=== PATIENT | male | born 1965 | race American Indian/Alaskan Native ===

== ENCOUNTER 2017-02-05 06:19 | Day surgery (SDC) | payer MEDICAID ==
[2017-02-05] MEDS ORDERED: LR 1,000 ML IV ONE (07:07)
--- NOTE | 2017-02-05 07:08 | PDANEPAE ---
ANE History of Present Illness History of hep C for eso evaluation ANE Past Medical History - Pulmonary History Hx Sleep Apnea: No ANE Review of Systems Review of Systems: - Exercise capacity METS (RN): 4 METS ANE Patient History - Allergies Allergies/Adverse Reactions: No Known Allergies Allergy (Unverified 02/05/17 07:20) - Smoking Hx Smoking Status: Heavy smoker ANE Labs/Vital Signs - Vital Signs Height: 187.96 cm Weight: 72.575 kg ANE Physical Exam - Airway Neck exam: FROM Mallampati Score: Class 2 Mouth exam: poor dentition - Pulmonary Pulmonary: no respiratory distress - Cardiovascular Cardiovascular: regular rate and rhythym - ASA Status ASA Status: II ANE Anesthesia Plan Anesthesia Plan: MAC (With IV GA if needed)
[2017-02-05] MEDS ORDERED: PROPOFOL/EMULSION 500 MG/50 ML BOTTLE IV ONE (07:31)
[2017-02-05] MEDS ORDERED: LIDOCAINE 2% 5 ML SDV ONE (07:31)
[2017-02-05] MEDS ORDERED: NALOXONE HCL 0.4 MG/ML INJ IVP PRN (07:33)
[2017-02-05] MEDS ORDERED: ONDANSETRON 4 MG/2 ML VIAL IVP PRN (07:33)
[2017-02-05] MEDS ORDERED: fentaNYL 100 MCG/2 ML INJ IVP PRN (07:33)
--- NOTE | 2017-02-05 07:47 | PDGENHP ---
History & Physical Chief Complaint: esophageal varices/heartburn History of Present Illness: 52 year old male presents for evaluation of esophageal varices evaluation of heartburn Pertinent Past, Social, Family History: PMHx: cirrhosis. SoHx: alcohol Relevant Physical Exam: HEENT: Anicteric. CV: RRR +s1s2. lungs :CTAB Cardiorespiratory Assessment: ASA 3
[2017-02-05] MEDS ORDERED: INDOMETHACIN 50 MG SUPP PR PRN (07:48)
[2017-02-05] MEDS ORDERED: NS 500 ML IV SCH (08:00)
--- NOTE | 2017-02-05 08:08 | POSTANESTH ---
Post Anesthetic Evaluation Cardiovascular Status: Normal, Stable (bp SIMILIAR TO PRE-OP) Respiratory Status: Normal, Stable Level of Consciousness/Mental Status: Can Participate in Eval, Alert and Oriented Pain Control: Adequate, Prn Tx Ordered Nausea/Vomiting Control: Adequate, Prn Tx Ordered Complications Possibly Related to Anesthesia: None Noted
--- NOTE | 2017-02-05 08:18 | POSTOPPROG ---
Post Op Note Date of Operation: 02/05/17 Surgeon: Diaz Coon Anesthesia: IV Sedation Pre-op Diagnosis: heartburn. Post-op Diagnosis: heartburn. gastritis Indication: heartburn Procedure: EGD with bx Findings: gastritis Inf/Abcess present in the surg proc area at time of surgery?: No EBL: Minimal Specimen(s): gastritis GE jxn.
[2017-02-05 08:24] VITALS: TEMP 97.3
[2017-02-05 09:07] VITALS: O2SAT 95
--- NOTE | 2017-02-05 09:42 | GPN ---
[f rep st] PROCEDURE NOTE DATE OF PROCEDURE: 02/05/2017 PROCEDURE: Esophagogastroduodenoscopy with biopsy. INDICATIONS: Mr. Olivas is a 52-year-old male with a history of liver cirrhosis who presents for evaluation of esophageal varices as well as complaints of heartburn. CONSENT: Risks, benefits, and alternatives of the procedure were discussed in great detail with the patient. Risks of infection, bleeding, perforation, and sedation were discussed. All questions answered and informed consent was obtained. MEDICATIONS: Propofol. Please see Anesthesia record for details. ESTIMATED BLOOD LOSS: Insignificant ESOPHAGOGASTRODUODENOSCOPY EXAMINATION: The Olympus upper endoscope was introduced into the mouth and advanced to the esophagus. The proximal and mid esopha herminia were normal in appearance. No evidence of esophageal varices was noted. At the distal esophagus, mild esophagitis was noted. Biopsies were taken. The stomach was entered and closely examined including retroflexed views of the angularis, cardia, and fundus. A hiatal hernia was noted. The mucosa of the antrum body was erythematous in a patchy distribution. Biopsies taken. The duodenal bulb and second portion of the duodenum were normal in appearance. IMPRESSION: 1. Esophagitis, status post biopsy. 2. Gastritis, status post biopsy. 3. No esophageal varices were noted. 4. PPI therapy. 5. Continue previous medications. 5. Follow up with Dr. Espinoza in our office for his liver care. /[id number]/MODL MTDD
[2017-02-05 11:11] VITALS: BP 110/60; PULSE 70; RESP 16
== END 2017-02-05 09:35 | disposition home or self-care (01) ==
LOC: FSGY 06:19
PROVIDERS: ATTEND Internal Medicine Gastroenterology
PROC: 0DB38ZX Excision of Lower Esophagus, Via Natural or Artificial Opening Endoscopic, Diagnostic (ICD-10-PCS; principal; 2017-02-05 07:30)
PROC: 0DB68ZX Excision of Stomach, Via Natural or Artificial Opening Endoscopic, Diagnostic (ICD-10-PCS; principal; 2017-02-05 07:30)
DX: K20.9 Esophagitis, unspecified (principal); K29.70 Gastritis, unspecified, without bleeding; K44.9 Diaphragmatic hernia without obstruction or gangrene; K74.60 Unspecified cirrhosis of liver; K21.9 Gastro-esophageal reflux disease without esophagitis
CPT/HCPCS: J2704

== ENCOUNTER 2017-05-06 05:27 | Inpatient (IN) | payer MEDICAID ==
[2017-05-06] MEDS ORDERED: ceFAZolin 2 GM/SWFI 2 GM/20 ML SYR IVP ONE (05:45)
[2017-05-06] MEDS ORDERED: LIDOCAINE 1% 2 ML INJ ID PRN (05:46)
[2017-05-06] MEDS ORDERED: LR 1,000 ML IV ONE (05:46)
[2017-05-06] MEDS ORDERED: LIDOCAINE 0.5% 50 ML SDV ONE (05:53)
[2017-05-06] MEDS ORDERED: LIDOCAINE 1% 2 ML INJ ONE (05:54)
--- NOTE | 2017-05-06 06:52 | PDANEPAE ---
ANE History of Present Illness bilat leg wound ANE Past Medical History - Cardiovascular History Hx Hypertension: No Hx Arrhythmias: No Hx Chest Pain: No Hx Coronary Artery / Peripheral Vascular Disease: No Hx CHF / Valvular Disease: No Hx Palpitations: No - Pulmonary History Hx COPD: No Hx Asthma/Reactive Airway Disease: No Hx Recent Upper Respiratory Infection: No Hx Oxygen in Use at Home: No Hx Sleep Apnea: No Sleep Apnea Screening Result - Last Documented: Negative Pulmonary History Comment: smokes 5 cigs/day but did not smoke x 10 mos prior to October. - Neurologic History Hx Cerebrovascular Accident: No Hx Seizures: No Hx Dementia: No - Endocrine History Hx Diabetes: No - Renal History Hx Renal Disorders: No - Liver History Hx Hepatic Disorders: Yes Hepatic History Comment: Cirrhosis, Hep C - Neurological & Psychiatric Hx Hx Neurological and Psychiatric Disorders: No - Cancer History Hx Cancer: No - Congenital Disorder History Hx Congenital Disorders: No - GI History Hx Gastrointestinal Disorders: No - Other Health History Other Health History: cellulitis bilat lower legs-ulcerated areas and edema bilat knees,thighs - Chronic Pain History Chronic Pain: Yes (bilat lower legs) - Surgical History Prior Surgeries: L hip Bone marrow bx at [facility] 05-04-17. L thumb sx ANE Review of Systems Review of systems is: negative Review of Systems: - Exercise capacity Exercise capacity: >=4 METS METS (RN): 4 METS ANE Patient History - Allergies Allergies/Adverse Reactions: No Known Allergies Allergy (Verified 05/04/17 15:31) - Home Medications Home Medications: Flonase Nasal [place] 05/04/17 [Last Taken Unknown] Furosemide 05/04/17 [Last Taken Unknown] Omeprazole 05/04/17 [Last Taken Unknown] Spironolactone 05/04/17 [Last Taken Unknown] Sulfamethox/Tmp 05/04/17 [Last Taken Unknown] oxyCODONE CR 05/04/17 [Last Taken Unknown] - NPO status NPO Status: no food or drink >8 hours - Anes Hx Anes Hx: no prior problems - Smoking Hx Smoking Status: Heavy smoker - Alcohol Use Alcohol Use: Sober (x 17 mos) - Family Anes Hx Family Hx Anesthesia Complications: none ANE Labs/Vital Signs - Vital Signs Blood Pressure: 105/59 Heart Rate: 84 Respiratory Rate: 16 O2 Sat (%): 96 Height: 187.96 cm Weight: 77.111 kg ANE Physical Exam - Airway Mallampati Score: Class 2 Mouth exam: poor dentition - Pulmonary Pulmonary: no respiratory distress - Cardiovascular Cardiovascular: regular rate and rhythym - ASA Status ASA Status: III ANE Anesthesia Plan Anesthesia Plan: general endotracheal anesthesia, GA w LMA
--- NOTE | 2017-05-06 07:06 | PDHPUP ---
History & Physical Update H&P update statement: This history and physical update is based on an assessment of the patient which was completed after admission or registration (within 24 hours), but prior to the surgery/procedure. H&P update: H&P reviewed & patient examined, no change in patient's condition since H&P completed
[2017-05-06] MEDS ORDERED: LIDOCAINE 2% 5 ML SDV ONE (07:12)
[2017-05-06] MEDS ORDERED: fentaNYL 100 MCG/2 ML INJ ONE ×4 (07:13→08:50)
[2017-05-06] MEDS ORDERED: PROPOFOL/EMULSION 500 MG/50 ML BOTTLE IV ONE (07:13)
[2017-05-06] MEDS ORDERED: ALBUTEROL 3 ML DEYVIAL IH PRN (08:23)
[2017-05-06] MEDS ORDERED: NALOXONE HCL 0.4 MG/ML INJ IVP PRN (08:23)
[2017-05-06] MEDS ORDERED: ONDANSETRON 4 MG/2 ML VIAL IVP PRN (08:23)
[2017-05-06] MEDS ORDERED: HYDROmorphONE/DILAUDID 1 MG/ML INJ IVP PRN (08:23)
--- NOTE | 2017-05-06 08:24 | POSTOPPROG ---
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
[2017-05-06] MEDS ORDERED: oxyCODONE IR 5 MG TAB PO ONE (08:25)
--- NOTE | 2017-05-06 08:26 | POSTANESTH ---
Post Anesthetic Evaluation Cardiovascular Status: Normal, Stable Respiratory Status: Normal, Stable Level of Consciousness/Mental Status: Can Participate in Eval Pain Control: Adequate, Prn Tx Ordered Nausea/Vomiting Control: Adequate, Prn Tx Ordered Complications Possibly Related to Anesthesia: None Noted
[2017-05-06] MEDS: fentaNYL 100 MCG/2 ML INJ IVP PRN ×4 (08:31→09:00)
[2017-05-06] MEDS ORDERED: oxyCODONE IR 5 MG TAB ONE (08:45)
[2017-05-06] MEDS: IBUPROFEN 600 MG TAB PO PRN ×2 (10:28→17:39)
[2017-05-06] MEDS: oxyCODONE IR 5 MG TAB PO PRN ×2 (11:57→17:40)
[2017-05-06] MEDS ORDERED: IBUPROFEN 200 MG TAB PO PRN (14:27)
[2017-05-06] MEDS ORDERED: oxyCODONE IR 5 MG TAB PO PRN (14:27)
--- NOTE | 2017-05-06 14:33 | PDGENHP ---
History and Physical - Chief Complaint Acute leg edema - History of Present Illness Primary care provider: [facility] Primary overlock elastic attacher: Dr. Joni Espinoza Primary oncologist: Dr. Esau Salomon Primary general surgeon and product support specialist: Dr. Li Thacker Primary service: Dr. Li Thacker Reason for consultation: Medical comanagement HPI: 52-year-old male presenting with acute lower extremity edema characterized as weighty, swollen legs with associated pain located in the bilateral lower extremities, skin flaking, nonhealing ulcerations, with onset of these wounds approximately October of 2016. The patient reports that he normally uses oxycodone immediate release to alleviate his pain, and the pain is somewhat worse with ambulation. He reports that the edema has recently been increasing, and he has not taken his home diuretics on the morning of this presentation secondary to surgical procedure. He was recently initiated on ciprofloxacin and Bactrim, and he has been adherent to these medications. History Information - Allergies/Home Medication List Allergies/Adverse Reactions: No Known Allergies Allergy (Verified 05/04/17 15:31) Home Medications: Fluticasone Nasal [Flonase Nasal [place] (RX)] 2 sprays NASAL BID 05/04/17 [Last Taken 05/05/17 21:00] Furosemide [Lasix 20 MG (*)] 20 mg PO DAILY 05/04/17 [Last Taken 05/05/17] Omeprazole 40 mg PO DAILY 05/04/17 [Last Taken 05/05/17] Spironolactone [Aldactone 50 MG (RX)] 50 mg PO DAILY 05/04/17 [Last Taken ] Sulfamethox/Tmp 800/160 mg [Bactrim Ds] 1 tab PO BID 05/04/17 [Last Taken 04:00] oxyCODONE IR [Oxycodone Ir (*)] 5 - 10 mg PO Q6H PRN 05/04/17 [Last Taken 04:00] Ibuprofen [Motrin (*)] 400 mg PO Q6H PRN 05/06/17 [Last Taken 05/04/17] I have personally reviewed and updated: family history, medical history, social history, surgical history - Past Medical History Additional medical history: 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 Joni Espinoza, who has recommended follow-up for possible malignancy with Dr. Salomon as well as [facility] [place], although the patient recently received notification that he was not a transplant candidate. Liver malignancy verses multiple myeloma, currently being evaluated by Dr. Darcie Salomon. Chronic wounds with lymphedema, recently diagnosed as secondary Pseudomonas - Surgical History Additional surgical history: Bone marrow biopsy 2 days ago. Orthopedic surgeries. Patient has never had operative wound care of his lower extremity - Family History Additional family history: No family history of DVT - Social History Smoking Status: Heavy smoker Alcohol Use: Sober (x 17 mos) Drug Use: None Additional social history: Independent in his ADLs Review of Systems Review of Systems: ROS: 10pt was reviewed & negative except for what was stated in HPI & below Constitutional: Reports: other (Weight gain) Skin: Reports: other (Flaking and ulcerations bilateral lower extremity, soft tissue swelling and tenderness) Physical Exam Physical Exam: Temp Pulse Resp BP Pulse Ox 36.9 C 81 18 93/54 L 96 05/06/17 11:51 05/06/17 11:51 05/06/17 11:51 05/06/17 11:51 05/06/17 11:51 O2 (L/minute) 3 Constitutional: no apparent distress, not in pain, chronically ill appearing, uncomfortable Eyes: PERRL, EOMI, icteric sclera Ears, Nose, Mouth, Throat: moist mucous membranes, no oral mucosal ulcers, poor dentition Cardiovascular: regular rate and rhythym, no murmur, rub, or gallop, edema (2+ bilateral lower extremity edema), No irregularly irregular Respiratory: no respiratory distress, no rales or rhonchi, clear to auscultation Gastrointestinal: normoactive bowel sounds, other (Firm abdomen), No tenderness , No guarding, No distension Skin: other (Crusting ulceration between the 1st 2nd and 3rd digits on the left lower extremity, extending somewhat dorsally on to the surface of the left foot , wound VAC currently in place, dry flaking skin proximally, left lower extremity also with dry scaling skin) Musculoskeletal: other (Full range of motion right ankle without pain, limited range of motion left ankle secondary to pain) Neurologic: AAOx3, sensation intact bilaterally, No weakness, No asterixes Psychiatric: interacting appropriately, not anxious, not encephalopathic, thought process linear Lab Data & Imaging Review Patient ABO/Rh A POSITIVE 05/06/17 06:30 Antibody Screen NEGATIVE 05/06/17 06:30 Assessment & Plan Assessment: 52-year-old male presenting for surgical wound debridement in the setting of cirrhosis, pseudomonal skin infection Plan: 1. Cirrhosis. Patient reports this is secondary to hepatitis C virus, although the patient does have approximately 5 years of heavy alcohol use in his recent past, last drink 17 months ago, may have potentiated or accelerated his liver damage -check labs at this time to evaluate synthetic function -patient is clearly hypervolemic and review of outside records demonstrates he has gained 4.5 kg since 3 months prior, based on weights obtained from 02/05/2017 -given that he held his morning Lasix and Aldactone, and has also received IV fluids with surgery, would recommend initially treating him with Lasix 40 mg IV twice daily, gauging affect with strict I&Os, daily weights -will possibly reinitiate his home Aldactone tomorrow, depending on lab values, urine output -patient has not been initiated on lactulose, but he is demonstrating subtle facial affect of the patient who develops hepatic encephalopathy and I would recommend beginning to educate him regarding lactulose at this time, giving him an initial trial, will schedule three times daily gauge effect 2. Pseudomonal skin infection with lymphedema and chronic lower extremity wounds. Reviewed outside records including 04/28/[address] Li Thacker, characterizing patient's previous wound care, plan for surgical debridement -discussed with Dr. Li Thacker, she is taking the patient to the OR this morning, she is placed wound vacs, she reports to me that she will remain the primary service and will continue to consult this patient's daily care in conjunction with Infectious Disease to help guide antibiotic management 3. Liver cancer versus multiple myeloma. Outside records demonstrate that patient does have an elevated kappa to lambda spike, although there are reports of the patient having liver malignancy -will order outside [facility] to determine the exact working diagnosis aware patient is in workup -patient reports he has an upcoming PET scan 4. Anemia. Baseline hemoglobin around 10, secondary to chronic inflammatory disease, will recheck hemoglobin now Diet. Regular Prophylaxis. Per surgical primary team Code. Full per patient, his sister surely is MD ALTMAN Disposition. Anticipated discharge is 05/07, pending stabilization of conditions outlined above. If patient requires greater than 48 hr inpatient hospitalization for reasonable medical necessity and ongoing surgical care, he will be upgraded to inpatient admission status tomorrow.
[2017-05-06] MEDS: FUROSEMIDE 40 MG/4 ML VIAL IVP SCH (14:44)
[2017-05-06] MEDS: LACTULOSE 20 GM/30 ML UDCUP PO SCH ×2 (14:44→22:06)
[2017-05-06 15:38] LABS: % IMMATURE GRANULYOCYTES 0.7 % (0.0-1.1); ABSOLUTE IMMATURE GRANULOCYTES 0.07 10^3/uL (0.00-0.10); ADD DIFF? NO; ADD MORPH? NO; ADD SCAN? NO; ATYPICAL LYMPHOCYTE FLAG 0 (0-99); FRAGMENT RBC FLAG 0 (0-99); HEMATOCRIT 28.1 % (40.0-51.0); HEMOGLOBIN 9.7 g/dL (13.7-17.5); LEFT SHIFT FLG 0 (0-99); LIPEMIA HEMOLYSIS FLAG 90 (0-99); MEAN CELL HEMOGLOBIN 30.8 pg (27.9-34.1); MEAN CELL HEMOGLOBIN CONCENTR. 34.5 g/dL (32.4-36.7); MEAN CELL VOLUME 89.2 fL (81.5-99.8); MEAN PLATELET VOLUME 8.5 fL (8.7-11.7); PLATELET CLUMPS FLAG 0 (0-99); PLATELET COUNT 227 10^3/uL (150-400); RED BLOOD CELL COUNT 3.15 10^6/uL (4.40-6.38); RED CELL DISTRIBUTION WIDTH 15.3 % (11.5-15.2)
[2017-05-06 16:15] LABS: ALANINE AMINOTRANSFERASE 29 IU/L (21-72); ALBUMIN 2.7 g/dL (3.5-5.0); ALKALINE PHOSPHATASE 84 IU/L (38-126); ANION GAP 9 mEq/L (8-16); ASPARTATE AMINOTRANSFERASE 43 IU/L (17-59); BILIRUBIN,TOTAL 1.3 mg/dL (0.1-1.4); CALCIUM 8.8 mg/dL (8.5-10.4); CARBON DIOXIDE 17 mEq/l (22-31); CHLORIDE 109 mEq/L (97-110); CREATININE 1.5 mg/dL (0.7-1.3); GLOMERULAR FILTRATION RATE 49; GLUCOSE 101 mg/dL (70-100); POTASSIUM 4.4 mEq/L (3.5-5.2); SODIUM 135 mEq/L (134-144); TOTAL PROTEIN 7.7 g/dL (6.3-8.2)
--- NOTE | 2017-05-06 21:16 | GCON ---
[f rep st] CONSULTATION INFECTIOUS DISEASE CONSULTATION. DATE OF CONSULTATION: 05/06/2017 REASON FOR CONSULTATION: Query lower extremity cellulitis. HISTORY OF PRESENT ILLNESS: This is a 52-year-old male whose current problems date back to February 2016 when he was noted to have increased lower extremity swelling and subsequently diagnosed with cirrhosis attributed to hepatitis C and alcohol. Through a series of events, patient developed lower extremity wounds related to various lower extremity injuries and [facility]. Multiple attempts were made to try to adequately debride his lower extremities and control of lower extremity edema, but unable to debride adequately in clinic and patient was taken to the OR today for wound VAC placement. Patient was also managed at [facility], who reportedly obtained a wound culture which showed reportedly Pseudomonas. Patient was on a course of Cipro and Bactrim. Cipro was discontinued 4 days ago and patient was on Bactrim leading up to surgery. On evaluation by the surgical services, there was concern for faint erythema of the lower extremities consistent with possible cellulitis. Patient notes increasing swelling in his legs and increasing pain associated with his legs that has been progressive over the last several weeks. He denies fever but has had chills for 1 month. In the OR today, patient was found to have significant necrotic material and wounds were debrided and wound VAC was placed. No cultures were obtained. 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 Has not received hepatitis C treatment. Genotype and viral load are not available at the time of this dictation. Also, there is concern for underlying liver cancer versus multiple myeloma and patient underwent a bone marrow biopsy 2 days ago. Lower extremity lymphedema with multiple wounds colonized with Pseudomonas. SURGICAL HISTORY: Bone marrow biopsy 2 days ago. Orthopedic surgeries and operative care of his wounds as per HPI. SOCIAL HISTORY: Patient is a longstanding heavy smoker. He has been abstinent from alcohol for 17 months. Remote history of drug use in his teen years. Denies blood transfusion. Previously worked as a remote inpatient coder and a cook. FAMILY HISTORY: Reviewed and noncontributory. ALLERGIES: NKDA. MEDICATIONS: Include perioperative cefazolin 2 g, Aldactone 50 mg daily. Protonix 40 mg daily, oxycodone as needed, lactulose 20 mg 3 times daily, Motrin , Lasix 40 mg twice daily, Flonase. REVIEW OF SYSTEMS: A complete 10-point review of systems was performed and is negative except as mentioned in the HPI. PHYSICAL EXAMINATION: VITAL SIGNS: Blood pressure 106/61, heart rate 78, respiratory rate 20, saturation 98% on room air, temperature 36.6. Afebrile throughout his hospital course. GENERAL: This is a very pleasant male sitting up in bed, in no acute distress. HEENT: Pale conjunctivae, query underlying mild jaundice. Oropharynx: Poor dentition. Moist mucous membranes. NECK: Supple. No lymphadenopathy. CARDIOVASCULAR: Regular rate, no murmurs. CHEST: Clear to auscultation bilaterally. ABDOMEN: Soft, nontender. No obvious ascites on my exam. : No Hsieh. EXTREMITIES: Patient has marked edema up to his hips, but most prominent in the distal leg with hyperpigmentation in a stocking distribution, left greater than right. Patient has wound vacs in place. On the right leg, there is a faint pinkness superimposed, the hyperpigmentation, with the pinkness traveling up his right leg with associated tenderness to palpation. On the left side, there is also a faint pinkness as well with associated warmth bilaterally, as above marked woody edema. NEUROLOGIC: He is alert, oriented x4. He is moving all 4 extremities equally. His speech is fluent. LABORATORY: White count 9.9, hematocrit 28, platelets of 227, 68% neutrophils. Creatinine is pending. INR is 1.48 previously. Blood cultures were collected and are pending. ASSESSMENT AND PLAN: Complex 52-year-old male with cirrhosis and likely malignancy hepatoma versus multiple myeloma, who is admitted for LE wound debridement. Certainly the most pressing underlying problem is control of lower extremity edema. There is a faint pinkness to his legs bilaterally. Difficult to assess if true infection, but patient has had some systemic symptoms, i.e chills. His white count is slightly elevated. Once concern is that infection could be significantly more subtle in patient with underlying cirrhosis. Will initiate cefazolin for coverage of MSSA and group A strep, if infected, most consistent with strep. But he may simply need elevation and better edema control. Reassess need for antibiotics tomorrow. Discontinue Bactrim. Thank you for this consultation. We will continue to follow on a daily basis. /[id number]/MODL MTDD
[2017-05-06] MEDS: FLUTICASONE NASAL 120 SPRAYS/16 GM MDI EACHNARE SCH (22:06)
[2017-05-07] MEDS: oxyCODONE IR 5 MG TAB PO PRN ×5 (00:17→23:57)
[2017-05-07] MEDS: PANTOPRAZOLE SODIUM 40 MG TAB PO SCH (07:29)
[2017-05-07] MEDS: FUROSEMIDE 40 MG/4 ML VIAL IVP SCH ×2 (07:29→16:13)
[2017-05-07] MEDS: LACTULOSE 20 GM/30 ML UDCUP PO SCH ×3 (07:29→21:22)
[2017-05-07] MEDS: FLUTICASONE NASAL 120 SPRAYS/16 GM MDI EACHNARE SCH ×2 (07:29→19:38)
[2017-05-07] MEDS ORDERED: SPIRONOLACTONE 50 MG TAB PO SCH (09:00)
[2017-05-07] MEDS ORDERED: NON-FORMULARY NEW DRUG (Omeprazole [Omeprazole] 40 MG) PO SCH (09:00)
--- NOTE | 2017-05-07 09:30 | SOAPPROG ---
SOAP Progress Note Assessment/Plan: Assessment: POD #1 s/p debridement BLE with wound vac placement IV antibiotics per ID Hospitalists managing comorbidities OK to change allevyn dressings PRN We will change wound vac dressings on Wednesday Seen c Dr. Thacker S: pain of bilateral lower extremities. significant drainage and leaking from dressings overnight. O: laying in bed comfortable NAD No increased WOB + peripheral edema B Wound vac to suction 05/18/17 08:48 Objective: Vital Signs Temp Pulse Resp BP Pulse Ox 36.7 C 80 16 93/57 L 97 05/07/17 08:03 05/07/17 08:03 05/07/17 08:03 05/07/17 08:03 05/07/17 08:03 Laboratory Results 05/06/17 15:13 05/06/17 15:13 05/06/17 05/07/17 05/08/17 05:59 05:59 05:59 Intake Total 1220 Output Total 370 Balance 850 ICD10 Worksheet Patient Problems: Problems Problem Status Onset Cirrhosis of liver Acute Lymphedema Acute
[2017-05-07 10:20] LABS: % IMMATURE GRANULYOCYTES 0.6 % (0.0-1.1); ABSOLUTE IMMATURE GRANULOCYTES 0.05 10^3/uL (0.00-0.10); ADD DIFF? NO; ADD MORPH? NO; ADD SCAN? NO; ATYPICAL LYMPHOCYTE FLAG 0 (0-99); FRAGMENT RBC FLAG 30 (0-99); HEMATOCRIT 29.5 % (40.0-51.0); HEMOGLOBIN 10.2 g/dL (13.7-17.5); LEFT SHIFT FLG 0 (0-99); LIPEMIA HEMOLYSIS FLAG 90 (0-99); MEAN CELL HEMOGLOBIN 30.4 pg (27.9-34.1); MEAN CELL HEMOGLOBIN CONCENTR. 34.6 g/dL (32.4-36.7); MEAN CELL VOLUME 88.1 fL (81.5-99.8); MEAN PLATELET VOLUME 8.5 fL (8.7-11.7); PLATELET CLUMPS FLAG 0 (0-99); PLATELET COUNT 283 10^3/uL (150-400); RED BLOOD CELL COUNT 3.35 10^6/uL (4.40-6.38); RED CELL DISTRIBUTION WIDTH 15.3 % (11.5-15.2)
[2017-05-07 10:27] LABS: ALANINE AMINOTRANSFERASE 31 IU/L (21-72); ALBUMIN 2.8 g/dL (3.5-5.0); ALKALINE PHOSPHATASE 80 IU/L (38-126); ANION GAP 10 mEq/L (8-16); ASPARTATE AMINOTRANSFERASE 44 IU/L (17-59); BILIRUBIN,TOTAL 1.2 mg/dL (0.1-1.4); CALCIUM 8.6 mg/dL (8.5-10.4); CARBON DIOXIDE 19 mEq/l (22-31); CHLORIDE 111 mEq/L (97-110); CREATININE 1.5 mg/dL (0.7-1.3); GLOMERULAR FILTRATION RATE 49; GLUCOSE 114 mg/dL (70-100); POTASSIUM 4.3 mEq/L (3.5-5.2); SODIUM 140 mEq/L (134-144)
--- NOTE | 2017-05-07 10:33 | PCMIDPN ---
Assessment/Plan: Severe LE edema: multifactorial with cirrhosis and lymphedema. Redness almost completely resolved today therefore suspect not c/w cellulitis - suspect due to skin inflammation from severe edema. Sl elevated WBC yesterday likely leukemoid reaction from surgery --dc cefazolin --continue to monitor blood cx --ID to follow peripherally Subjective: patient remains cheerful no specific c/o Objective: Vital Signs Temp Pulse Resp BP Pulse Ox 36.7 C 80 16 93/57 L 97 05/07/17 08:03 05/07/17 08:03 05/07/17 08:03 05/07/17 08:03 05/07/17 08:03 Laboratory Results 05/07/17 09:52 05/07/17 09:52 05/06/17 05/07/17 05/08/17 05:59 05:59 05:59 Intake Total 1220 Output Total 370 Balance 850 - Physical Exam General Appearance: alert EENT: poor dentition Respiratory: No accessory muscle use Neck: supple Extremities: pedal edema (woody), inflammation, other (hyperpigmentation stocking distribution R>L ; multiple wound vacs in place), No erythema Skin: warm/dry, pallor Neuro/Psych: alert, normal mood/affect, oriented x 3 ICD10 Worksheet Patient Problems: Problems Problem Status Onset Cirrhosis of liver Acute Lymphedema Acute - ICD10 Problem Qualifiers (1) Lymphedema (2) Cirrhosis of liver
--- NOTE | 2017-05-07 17:26 | ASMTCMCOM ---
CM Note CM Note Notes: Spoke with this am, pt needs a wound vac. Application form signed and submitted to [facility], Sarina at [facility] notified. CM spoke w/pt re dc home with wound vac and homecare. Pt does not have a home of his own, his 8 yrs ago from bone cancer. Presently he is staying with Melba a "lady friend" she Lives at [address] in [place]. He also has a brother in [place] but he doesn't like to be around him as he "self medicates". He does have another friend Gene who he can also stay with. CM and pt also discussed SNF but since he is has Medicaid, he would need to stay 30 days, pt prefers to go to Melba's house. CM waiting for ins auth for wound vac and will set up home care. DC Plan: Dc to [facility] [place] with wound vac and OCTAVIO RN Date Signed: 05/07/2017 05:26 PM Electronically Signed By:Nohemi Nolan RN
--- NOTE | 2017-05-07 17:35 | HOSPPROG ---
Hospitalist Progress Note Assessment/Plan: Assessment: 52-year-old male presenting for surgical wound debridement in the setting of cirrhosis, chronic LE edema Plan: 1. Cirrhosis. Patient reports this is secondary to hepatitis C virus, although the patient does have approximately 5 years of heavy alcohol use in his recent past, last drink 17 months ago, may have potentiated or accelerated his liver damage -likely significantly contributing to his LE edema, w/ a 4.5kg weight gain since 02/14 -cont lasix 40mg IV bid + restart home aldactone, gauge effect, monitor strict I /O/weights -remains substantially hypervolemic -Cr rising today (last Cr 1.2 04/16), now 1.5, monitor closely while diuresing 2. 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 D/w Dr. See, her impression is that he does not have acute cellulitis , and her recommendation is to stop IV Abx, monitor -POD#[address] Thacker, she remains primary service -he will require wound vac, CM making arrangements for outpt mgmt -daily wound care 3. Liver cancer versus multiple myeloma. Outside records demonstrate that patient does have an elevated kappa to lambda spike, although there are reports of the patient having liver malignancy -will order outside records from [facility] to determine the exact working diagnosis aware patient is in workup -patient reports he has an upcoming PET scan 4. Anemia. Baseline hemoglobin around 10, secondary to chronic inflammatory disease Diet. Regular Prophylaxis. Per surgical primary team Code. Full per patient, his sister surely is MD ALTMAN Disposition. Anticipated discharge uncertain, anticipated LOS>48hrs for reasonable medical necessity including cirrhosis w/ severe lower extremity edema requiring IV diuretics, high risk due to rising Cr and high risk of going into heptorenal syndrome. Counseled patient extensively about the renal/liver/edema issues above. Subjective: patient reports ongoing leg pain Objective: Vital Signs Temp Pulse Resp BP Pulse Ox 36.6 C 76 16 93/53 L 95 05/07/17 15:32 05/07/17 15:32 05/07/17 15:32 05/07/17 15:32 05/07/17 15:32 Laboratory Results 05/07/17 09:52 05/07/17 09:52 05/06/17 05/07/17 05/08/17 05:59 05:59 05:59 Intake Total 1220 Output Total 370 Balance 850 - Time Spent With Patient Time Spent with Patient: greater than 35 minutes Time Spent with Patient: Greater than 35 minutes spent on this patients care, greater than 50% of time spent counseling, educating, and coordinating care regarding the above mentioned plan. - Physical Exam Constitutional: chronically ill appearing, uncomfortable Cardiovascular: regular rate and rhythym, no murmur, rub, or gallop, edema (2+ bilat LE edema) Respiratory: no respiratory distress, no rales or rhonchi, clear to auscultation Gastrointestinal: normoactive bowel sounds, soft, non-tender abdomen, no palpable masses, No distension Skin: other (wrapped bilat feet) Neurologic: AAOx3, sensation intact bilaterally ICD10 Worksheet Patient Problems: Problems Problem Status Onset Cirrhosis of liver Acute Lymphedema Acute
[2017-05-08] MEDS: oxyCODONE IR 5 MG TAB PO PRN ×5 (04:41→22:57)
[2017-05-08] MEDS: LACTULOSE 20 GM/30 ML UDCUP PO SCH ×3 (08:51→21:32)
[2017-05-08] MEDS: FUROSEMIDE 40 MG/4 ML VIAL IVP SCH ×2 (08:51→16:26)
[2017-05-08] MEDS: FLUTICASONE NASAL 120 SPRAYS/16 GM MDI EACHNARE SCH ×2 (08:52→19:04)
[2017-05-08] MEDS: PANTOPRAZOLE SODIUM 40 MG TAB PO SCH (08:52)
--- NOTE | 2017-05-08 11:14 | ASMTCMCOM ---
CM Note CM Note Notes: Pt wound vac approved. [id number] Date Signed: 05/08/2017 11:14 AM Electronically Signed By:Nohemi Nolan RN
--- NOTE | 2017-05-08 12:19 | HOSPPROG ---
Hospitalist Progress Note Assessment/Plan: # cirrhosis d/t HCV, possible etOH currently sober - hypervolemic (better per patient) - diuresing with lasix IV and aldactone - need to follow IO and daily weights - recheck BMP today - cont lactulose # elevated SCr - last 1.2, currently 15; concerning - recheck BMP # chronic LE wounds s/p debridement - reported PSA in wound culture as outpatient - no infection per ID, holding abx - WV in place # possible cancer - most concerning for MM - records requested from [facility] - elevated M spike in PEP - recent BMBx, results not immediately available but requested; has plans for outpatient PET # anemia - at baseline Subjective: urinating alot Objective: Vital Signs Temp Pulse Resp BP Pulse Ox 36.8 C 75 12 97/55 L 94 05/08/17 08:00 05/08/17 08:00 05/08/17 08:00 05/08/17 08:00 05/08/17 08:00 Laboratory Results 05/07/17 09:52 05/07/17 09:52 05/07/17 05/08/17 05/09/17 05:59 05:59 05:59 Intake Total 1220 400 Output Total 370 750 Balance 850 -350 chart reviewed op note reviewed - Physical Exam Constitutional: no apparent distress, appears nourished Cardiovascular: regular rate and rhythym, no murmur, rub, or gallop Respiratory: no respiratory distress, no rales or rhonchi, clear to auscultation Gastrointestinal: normoactive bowel sounds, soft, non-tender abdomen, no palpable masses Musculoskeletal: other (bilat LE edema with WV) ICD10 Worksheet Patient Problems: Problems Problem Status Onset Lymphedema Acute Cirrhosis of liver Acute
[2017-05-08 14:42] LABS: ANION GAP 10 mEq/L (8-16); CALCIUM 8.1 mg/dL (8.5-10.4); CARBON DIOXIDE 17 mEq/l (22-31); CHLORIDE 109 mEq/L (97-110); CREATININE 1.2 mg/dL (0.7-1.3); GLOMERULAR FILTRATION RATE > 60; GLUCOSE 106 mg/dL (70-100); POTASSIUM 4.4 mEq/L (3.5-5.2); SODIUM 136 mEq/L (134-144)
--- NOTE | 2017-05-08 16:23 | ASMTCMCOM ---
CM Note CM Note Notes: Spoke w/, change in POC, pt now feels he needs to go to SNF. CM discussed change with pt and he does not think staying with his friend will work out. Pt understands he will need to stay a minimum of 30 days. Pt has medicaid, CM filled out [id number] and faxed signed copy to [facility], email sent to Tahira. Referrals sent to: [facility], [place] [facility] Plan: SNF Date Signed: 05/08/2017 04:22 PM Electronically Signed By:Nohemi Nolan RN
--- NOTE | 2017-05-08 20:16 | SOAPPROG ---
SOAP Progress Note Assessment/Plan: Assessment: s/p debridement BLE with wound vac placement IV antibiotics per ID - discontinued Hospitalists managing comorbidities OK to change allevyn dressings PRN. Spandigrip for edema We will change wound vac dressings tomorrow Patient now wants to DC to SNF - discussed c CM S: pain of bilateral lower extremities. does not think spandigrip will be helpful. long discussion about home with home care vs SNF and prefers SNF O:sitting at edge of bed, comfortable, NAD No increased WOB BLE JING wraps in place, wound vac to suction. 05/08/17 20:14 Objective: Vital Signs Temp Pulse Resp BP Pulse Ox 37.2 C 94 16 105/55 L 97 05/08/17 19:44 05/08/17 19:44 05/08/17 19:44 05/08/17 19:44 05/08/17 19:44 Laboratory Results 05/07/17 09:52 05/08/17 14:05 05/07/17 05/08/17 05/09/17 05:59 05:59 05:59 Intake Total 0690 990 2778 Output Total 370 750 375 Balance 850 -350 1125 ICD10 Worksheet Patient Problems: Problems Problem Status Onset Cirrhosis of liver Acute Lymphedema Acute
[2017-05-09] MEDS: oxyCODONE IR 5 MG TAB PO PRN ×6 (03:15→22:43)
[2017-05-09 05:46] LABS: ANION GAP 8 mEq/L (8-16); CALCIUM 7.8 mg/dL (8.5-10.4); CARBON DIOXIDE 20 mEq/l (22-31); CHLORIDE 106 mEq/L (97-110); CREATININE 1.1 mg/dL (0.7-1.3); GLOMERULAR FILTRATION RATE > 60; GLUCOSE 112 mg/dL (70-100); POTASSIUM 3.8 mEq/L (3.5-5.2); SODIUM 134 mEq/L (134-144)
[2017-05-09] MEDS: PANTOPRAZOLE SODIUM 40 MG TAB PO SCH (08:42)
[2017-05-09] MEDS: LACTULOSE 20 GM/30 ML UDCUP PO SCH ×3 (08:42→22:23)
[2017-05-09] MEDS: FUROSEMIDE 40 MG/4 ML VIAL IVP SCH ×2 (08:43→16:01)
--- NOTE | 2017-05-09 09:31 | HOSPPROG ---
Hospitalist Progress Note Assessment/Plan: # cirrhosis d/t HCV, possible etOH currently sober - hypervolemic (better per patient) - good diuresis with lasix IV and aldactone - need to follow BMP, IO and daily weights - cont lactulose # elevated SCr - improving with diuresis - recheck BMP daily # chronic LE wounds s/p debridement - reported PSA in wound culture as outpatient - no infection per ID, holding abx - WV in place - planning SNF rehab # possible cancer - most concerning for MM with elevated M spike in PEP - records requested from [facility], nothing presently available - recent BMBx, results not immediately available but requested; has plans for outpatient PET # anemia - at baseline Subjective: much uop Objective: Vital Signs Temp Pulse Resp BP Pulse Ox 37.1 C 78 16 97/59 L 93 05/09/17 07:35 05/09/17 08:37 05/09/17 08:37 05/09/17 08:37 05/09/17 08:37 Laboratory Results 05/07/17 09:52 05/09/17 05:16 05/08/17 05/09/17 05/10/17 05:59 05:59 05:59 Intake Total 400 2000 1316 Output Total 750 850 300 Balance -350 1150 1016 - Physical Exam Constitutional: no apparent distress, appears nourished Cardiovascular: regular rate and rhythym, no murmur, rub, or gallop Respiratory: no respiratory distress, no rales or rhonchi, clear to auscultation Gastrointestinal: soft, non-tender abdomen, no palpable masses, No guarding, No rebound, No distension ICD10 Worksheet Patient Problems: Problems Problem Status Onset Cirrhosis of liver Acute Lymphedema Acute
[2017-05-09] MEDS: FLUTICASONE NASAL 120 SPRAYS/16 GM MDI EACHNARE SCH ×2 (10:09→22:23)
--- NOTE | 2017-05-09 10:22 | GOP ---
[f rep st] OPERATIVE REPORT DATE OF OPERATION: 05/06/2017 SURGEON: Li Thacker MD DESILVERIZER: VIVIAN Espinal student. ANESTHESIA: IV sedation. ANESTHESIOLOGIST: Dr. Christopher Oakes. 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 PROCEDURE PERFORMED: Debridement skin, soft tissue, with wound VAC placement. The largest wound measures 14 x 20 X 0.3 cm. FINDINGS: Large left sided wound with large amount of bioburden. Small right sided wound SPECIMENS: None. ESTIMATED BLOOD LOSS: 10 cc. INDICATIONS: Patient is a 52-year-old man who has known end-stage liver disease and is being worked up for liver cancer as well as possible lymphoma. He has extremely edematous lower extremities. It is a mixed venous and lymphatic component due to his liver disease. DESCRIPTION OF PROCEDURE: Patient was brought into the operating room, placed supine on the table. Monitored anesthesia care with IV sedation was performed. His bilateral lower extremities were prepped. I debrided them with Versajet. Hemostasis was achieved. The largest wound extends from left anterior all the way posterior. A wound VAC was applied on this. The other wounds were dressed with Nena Hydrofera Blue. He tolerated the procedure well. /[id number]/MODL MTDD
[2017-05-09] MEDS: SPIRONOLACTONE 50 MG TAB PO SCH (17:47)
--- NOTE | 2017-05-09 17:47 | SOAPPROG ---
SOAP Progress Note Assessment/Plan: Assessment: s/p debridement BLE with wound vac placement IV antibiotics per ID - discontinued Hospitalists managing comorbidities OK to change allevyn dressings PRN. Spandigrip for edema Wound vac change 3x per week Patient now wants to DC to SNF - awaiting placement S: pain of bilateral lower extremities especially with dressing change. swelling improved. d O: laying in bed, comfortable, NAD No increased WOB All dressings changed. RLE dorsal foot wound CDI healthy granulation, redressed with HFB ready and allevyn LLE wound vac removed. Extensive periwound maceration (may need to change vac more frequently). Wounds CDI with good granulation. Actively draining serous fluid. Wound vac reapplied with help from Homero ALMARAZ and Luc LOPEZ Objective: Vital Signs Temp Pulse Resp BP Pulse Ox 37.1 C 88 17 105/62 95 05/09/17 16:00 05/09/17 16:00 05/09/17 16:00 05/09/17 16:00 05/09/17 16:00 Laboratory Results 05/07/17 09:52 05/09/17 05:16 05/08/17 05/09/17 05/10/17 05:59 05:59 05:59 Intake Total 400 2000 1316 Output Total 601 637 9648 Balance -350 1150 -84 ICD10 Worksheet Patient Problems: Problems Problem Status Onset Cirrhosis of liver Acute Lymphedema Acute
[2017-05-10] MEDS: oxyCODONE IR 5 MG TAB PO PRN ×6 (03:07→22:44)
[2017-05-10 05:42] LABS: ANION GAP 7 mEq/L (8-16); CALCIUM 8.2 mg/dL (8.5-10.4); CARBON DIOXIDE 21 mEq/l (22-31); CHLORIDE 106 mEq/L (97-110); CREATININE 1.1 mg/dL (0.7-1.3); GLOMERULAR FILTRATION RATE > 60; GLUCOSE 108 mg/dL (70-100); POTASSIUM 4.3 mEq/L (3.5-5.2); SODIUM 134 mEq/L (134-144)
[2017-05-10] MEDS: SPIRONOLACTONE 50 MG TAB PO SCH (08:14)
[2017-05-10] MEDS: PANTOPRAZOLE SODIUM 40 MG TAB PO SCH (08:14)
[2017-05-10] MEDS ORDERED: LIDOCAINE HCL 4% TOPICAL SOLN 50ML TP PRN ×2 (09:17→11:11)
[2017-05-10] MEDS ORDERED: HYDROmorphONE/DILAUDID 1 MG/ML INJ IVP ONE (09:19)
[2017-05-10] MEDS: FLUTICASONE NASAL 120 SPRAYS/16 GM MDI EACHNARE SCH ×2 (10:57→19:43)
[2017-05-10] MEDS: FUROSEMIDE 40 MG/4 ML VIAL IVP SCH ×3 (12:14→16:25)
[2017-05-10] MEDS: LACTULOSE 20 GM/30 ML UDCUP PO SCH ×3 (12:15→22:44)
--- NOTE | 2017-05-10 12:41 | SOAPPROG ---
SOAP Progress Note Assessment/Plan: Assessment/Plan: - 52yo M s/p BLE debridement with VAC placement - Pain controlled, VSS, HDS - Legs very weepy and as I watch his change there are actively dripping with fluid - VAC changes today to get better protection to surrounding skin as they are macerated. - Clinically optomize from edema standpoint, VAC change today. Sites are otherwise clean and dont appear to need addl debridement at this time 05/10/17 12:39 Subjective: Doing ok, undergoing VAC change during visit Objective: Vital Signs Temp Pulse Resp BP Pulse Ox 36.7 C 94 18 121/58 H 95 05/10/17 11:56 05/10/17 11:56 05/10/17 11:56 05/10/17 11:56 05/10/17 11:56 Laboratory Results 05/07/17 09:52 05/10/17 05:11 05/09/17 05/10/17 05/11/17 05:59 05:59 05:59 Intake Total 1999 4864 8262 Output Total 850 1400 1000 Balance 1150 1916 825 ICD10 Worksheet Patient Problems: Problems Problem Status Onset Cirrhosis of liver Acute Lymphedema Acute
--- NOTE | 2017-05-10 12:52 | WOCRNPDOC ---
WOCRN Advanced Assessment Note - Skin Integrity Problem, Advanced Assess Left Lower Leg Dressing Type: Black Vac Foam, Wound Vac Dressing Description: Intact Exudate Amount: Excessive Exudate Characteristic(s): Serous Integumentary Issue Intervention: Dressing Changed Ion Wound Tissue: Erythema, Macerated (severe), Swollen, Weeping, Venous Dermatitis, Shiny, Taught, Crusted, Painful/Tender, Hyperkeratotic Ion Wound Swelling: Severe Wound Bed Color: Red, Yellow Wound Bed Constitution: Granulation Tissue (70%), Red/[place] - Non Granular Tissue (30%) Wound Edges: Attached Site Odor: Strong, Musky Site Measurement - Head-to-Toe Length X Width X Depth (cm): [id number] Skin Integrity Problem Comment: Large wound exending from medial leg to lateral leg posteriorly. Patient has extensive pain. When he went to the bathroom this morning the trac pad was tugged which led to leaking alert on the vac. Also ion wound skin is very macerated (up to 6 [address]) and the decision was made to take the dressing down to get the patient on a more frequent vac change and to allow the skin to air out. Dressing was injected with 10 ml of 4% lidocaine solution prior to removal and patient was premedicated with PO oxycodone and IV Dilaudid. This helped with the foam removal. When foam was removed the patient dripped serous fluid from his wound like a leaking faucet. The ion wound skin was protected with marathon and then covered with hydrocolloid. The edges of the hydrocolloid (after applicaiton of mastisol) were sealed with stoma paste in a attempt to keep the skin sealed from moisture. Two pieces of black foam were used to cover the wound bed after applying 5 more ml of lidocaine to wound bed. The vac settings were change to - 150 mm Hg continuous suction to help manage the drainage. Jane LOPEZ and Crissy RN assited with care. Next vac change 05/12. Right Foot Dressing Type: Allevyn Life, Hydrofera Blue Ready, Tegaderm Film Dressing Description: Intact, Shadowed Exudate Amount: Excessive Exudate Characteristic(s): Serous Integumentary Issue Intervention: Dressing Changed Ion Wound Tissue: Macerated (severe) Wound Bed Constitution: Granulation Tissue Skin Integrity Problem Comment: Wound was protected with marathon ion wound. Mastisol applied and then hydrocolloid. HFB ready to wound bed then secured with [employer].
--- NOTE | 2017-05-10 13:06 | HOSPPROG ---
Hospitalist Progress Note Assessment/Plan: # cirrhosis d/t HCV, possible etOH currently sober - hypervolemic - cont diuresis with lasix IV and aldactone - need to follow BMP, IO and daily weights - cont lactulose # elevated SCr - better with diuresis - recheck BMP daily # chronic LE wounds s/p debridement - reported PSA in wound culture as outpatient - no infection per ID, holding abx - WV in place - changed today - planning SNF rehab # possible cancer - most concerning for MM with elevated M spike in PEP - records requested from [facility], nothing presently available - recent BMBx, results not immediately available but requested; has plans for outpatient PET - will need to f/u with Dr Salomon # anemia - at baseline Subjective: s/p WV change today; no other complaints Objective: Vital Signs Temp Pulse Resp BP Pulse Ox 36.7 C 94 18 121/58 H 95 05/10/17 11:56 05/10/17 11:56 05/10/17 11:56 05/10/17 11:56 05/10/17 11:56 Laboratory Results 05/07/17 09:52 05/10/17 05:11 05/09/17 05/10/17 05/11/17 05:59 05:59 05:59 Intake Total 1999 5332 0625 Output Total 850 1400 1000 Balance 1150 1916 825 ICD10 Worksheet Patient Problems: Problems Problem Status Onset Lymphedema Acute Cirrhosis of liver Acute
[2017-05-11 06:33] LABS: % IMMATURE GRANULYOCYTES 0.4 % (0.0-1.1); ABSOLUTE IMMATURE GRANULOCYTES 0.04 10^3/uL (0.00-0.10); ADD DIFF? NO; ADD MORPH? NO; ADD SCAN? NO; ATYPICAL LYMPHOCYTE FLAG 0 (0-99); FRAGMENT RBC FLAG 0 (0-99); HEMATOCRIT 24.7 % (40.0-51.0); HEMOGLOBIN 8.4 g/dL (13.7-17.5); LEFT SHIFT FLG 0 (0-99); LIPEMIA HEMOLYSIS FLAG 90 (0-99); MEAN CELL HEMOGLOBIN 29.8 pg (27.9-34.1); MEAN CELL VOLUME 87.6 fL (81.5-99.8); MEAN PLATELET VOLUME 8.6 fL (8.7-11.7); PLATELET CLUMPS FLAG 0 (0-99); PLATELET COUNT 230 10^3/uL (150-400); RED BLOOD CELL COUNT 2.82 10^6/uL (4.40-6.38); RED CELL DISTRIBUTION WIDTH 15.1 % (11.5-15.2)
[2017-05-11 06:36] LABS: ANION GAP 7 mEq/L (8-16); CALCIUM 8.1 mg/dL (8.5-10.4); CARBON DIOXIDE 24 mEq/l (22-31); CHLORIDE 103 mEq/L (97-110); CREATININE 1.1 mg/dL (0.7-1.3); GLOMERULAR FILTRATION RATE > 60; GLUCOSE 110 mg/dL (70-100); POTASSIUM 4.3 mEq/L (3.5-5.2); SODIUM 134 mEq/L (134-144)
[2017-05-11] MEDS: LACTULOSE 20 GM/30 ML UDCUP PO SCH ×3 (08:24→21:14)
[2017-05-11] MEDS: ENOXAPARIN 40 MG/0.4 ML SYR SC SCH (08:24)
[2017-05-11] MEDS: PANTOPRAZOLE SODIUM 40 MG TAB PO SCH (08:24)
[2017-05-11] MEDS: SPIRONOLACTONE 50 MG TAB PO SCH ×2 (08:25→11:18)
[2017-05-11] MEDS: FLUTICASONE NASAL 120 SPRAYS/16 GM MDI EACHNARE SCH ×2 (08:32→21:11)
[2017-05-11] MEDS: oxyCODONE IR 5 MG TAB PO PRN ×5 (09:38→23:29)
[2017-05-11] MEDS: FUROSEMIDE 40 MG/4 ML VIAL IVP SCH ×2 (11:16→16:39)
[2017-05-11] MEDS ORDERED: FUROSEMIDE 20 MG/2 ML VIAL IVP ONE (11:32)
--- NOTE | 2017-05-11 11:35 | HOSPPROG ---
Hospitalist Progress Note Assessment/Plan: # cirrhosis d/t HCV, possible etOH currently sober - hypervolemic - cont diuresis with lasix IV and aldactone - need to follow BMP, IO and daily weights - low Na - cont lactulose # elevated SCr - better with diuresis # chronic LE wounds s/p debridement - reported PSA in wound culture as outpatient - no infection per ID, holding abx - WV in place - changed today - planning SNF rehab # possible cancer - outpt BMBx shows 10% plasma cells in marrow - most c/w smoldering MM - has PET for this Wednesday already scheduled - will need to f/u with Dr Salomon after dc # anemia - at baseline Subjective: c/o ongoing bilat leg pain; less swollen when he awoke, but more swollen now Objective: Vital Signs Temp Pulse Resp BP Pulse Ox 37.0 C 77 16 117/47 L 94 05/11/17 11:09 05/11/17 11:09 05/11/17 11:09 05/11/17 11:09 05/11/17 11:09 Laboratory Results 05/11/17 05:31 05/11/17 05:31 05/10/17 05/11/17 05/12/17 05:59 05:59 05:59 Intake Total 3316 3015 Output Total 1400 1800 Balance 1916 1215 - Physical Exam Constitutional: no apparent distress, appears nourished Eyes: anicteric sclera Ears, Nose, Mouth, Throat: hearing normal Cardiovascular: regular rate and rhythym, systolic murmur Respiratory: no respiratory distress, no rales or rhonchi, clear to auscultation Skin: warm Musculoskeletal: full muscle strength, other (bilat LE edema; WV on L leg) Neurologic: AAOx3 Psychiatric: interacting appropriately ICD10 Worksheet Patient Problems: Problems Problem Status Onset Lymphedema Acute Cirrhosis of liver Acute
--- NOTE | 2017-05-11 14:17 | ASMTCMCOM ---
CM Note CM Note Notes: Emily Candelario (P#: [phone]) from [facility] came and assessed pt today for pt to go to rehab. Pts Medicaid LTC application has been sent to [facility]. CM to follow. Plan: awaiting approval from [facility] and Medicaid LTC Date Signed: 05/11/2017 02:16 PM Electronically Signed By:HALIE Ventura
[2017-05-11] MEDS ORDERED: HYDROmorphONE/DILAUDID 1 MG/ML INJ IVP PRN (15:01)
[2017-05-11] MEDS: HYDROmorphone HCL/NS/PF 0.4 MG/2 ML SYR IVP PRN (15:09)
--- NOTE | 2017-05-11 15:56 | SOAPPROG ---
SOAP Progress Note Assessment/Plan: Assessment: 52 yo with liver disease and large lower extremity weeping wounds doubt will be able to heal but did accomplish getting rid of bioburden Edema is less Agree with SNF and continued wound vac Will see on wound vac change days Plan: 05/11/17 15:55 Objective: Vital Signs Temp Pulse Resp BP Pulse Ox 37.0 C 77 16 117/47 L 94 05/11/17 11:09 05/11/17 11:09 05/11/17 11:09 05/11/17 11:09 05/11/17 11:09 Laboratory Results 05/11/17 05:31 05/11/17 05:31 05/10/17 05/11/17 05/12/17 05:59 05:59 05:59 Intake Total 3316 3015 Output Total 1400 1800 Balance 1916 1215 ICD10 Worksheet Patient Problems: Problems Problem Status Onset Cirrhosis of liver Acute Lymphedema Acute
--- NOTE | 2017-05-11 16:27 | WOCRNPDOC ---
WOCRN Advanced Assessment Note - Skin Integrity Problem, Advanced Assess Left Lower Leg Dressing Type: Black Vac Foam, Hydrocolloid, Wound Vac Dressing Description: Not Intact, Saturated Exudate Amount: Excessive Exudate Color: Reddish/Yellow Exudate Characteristic(s): Serosanguinous, Serous Integumentary Issue Intervention: Dressing Changed Zenia Wound Tissue: Macerated (severe), Raw, Venous Dermatitis, Dry Zenia Wound Swelling: Moderate Wound Bed Color: Red Wound Bed Constitution: Granulation Tissue Wound Edges: Irregular Site Odor: Strong, Pungent Skin Integrity Problem Comment: Called by control room agentSUNG Chan because vac dressing was leaking. After assessment, it was determined to be leaking along the entire distal aspect of the dressing. Previous dressing removed after pt. pre- medicated w/ IV Dilaudid. Severe maceration zenia-wound, extending out from wound bed 3-4 cm. Wound bed is well-granulated throughout. Highly exudative w/ serous and serosanguinous fluid visibly dripping out of dependent aspect of wound. Applied copious skin prep to zenia-wound skin, and framed wound w/ Replicare hydrocolloid. In an attempt to better manage exudate, 2 track pads were applied to vac foam, one on the medial aspect and another on the lateral. Vac setting resumed at -150mmHg. Seal obtained, but seal check indicates it is near the threshold for a leak alarm. control room agentSUNG Chan instructed to follow protocol if seal cannot be re-established. Wound RN will follow up with patient tomorrow.
[2017-05-12] MEDS: oxyCODONE IR 5 MG TAB PO PRN ×6 (03:06→23:22)
[2017-05-12 06:54] LABS: ANION GAP 10 mEq/L (8-16); CALCIUM 8.1 mg/dL (8.5-10.4); CARBON DIOXIDE 22 mEq/l (22-31); CHLORIDE 101 mEq/L (97-110); CREATININE 1.1 mg/dL (0.7-1.3); GLOMERULAR FILTRATION RATE > 60; GLUCOSE 113 mg/dL (70-100); POTASSIUM 4.4 mEq/L (3.5-5.2); SODIUM 133 mEq/L (134-144)
[2017-05-12] MEDS: ENOXAPARIN 40 MG/0.4 ML SYR SC SCH (09:04)
[2017-05-12] MEDS: PANTOPRAZOLE SODIUM 40 MG TAB PO SCH (09:04)
[2017-05-12] MEDS: SPIRONOLACTONE 50 MG TAB PO SCH (09:04)
[2017-05-12] MEDS: FLUTICASONE NASAL 120 SPRAYS/16 GM MDI EACHNARE SCH ×2 (09:05→21:07)
[2017-05-12] MEDS: LACTULOSE 20 GM/30 ML UDCUP PO SCH ×3 (10:46→21:06)
[2017-05-12] MEDS: FUROSEMIDE 40 MG/4 ML VIAL IVP SCH ×2 (10:46→15:39)
[2017-05-12] MEDS ORDERED: SODIUM HYPOCHLORITE (DAKINS 1/4 STR) 120 ML BTL TP PRN (13:57)
[2017-05-12] MEDS: HYDROmorphone HCL/NS/PF 0.4 MG/2 ML SYR IVP PRN (15:46)
--- NOTE | 2017-05-12 16:32 | HOSPPROG ---
Hospitalist Progress Note Assessment/Plan: # cirrhosis d/t HCV, possible etOH currently sober - hypervolemic - cont diuresis with lasix IV and aldactone - need to follow BMP, IO and daily weights - low Na diet - cont lactulose # elevated SCr - better with diuresis # chronic LE wounds s/p debridement - reported PSA in wound culture as outpatient - no infection per ID, holding abx - WV taken off today, Dakins, replace WV in a few days - planning SNF rehab - pending Medicaid approval # likely MM - outpt BMBx shows 10% plasma cells in marrow (discussed with onc) - most c/w smoldering MM - has PET for this Wednesday already scheduled - will need to f/u with Dr Salomon after dc # anemia - at baseline Subjective: wound vac taken off; pain in leg Objective: Vital Signs Temp Pulse Resp BP Pulse Ox 36.9 C 84 16 112/53 L 92 05/12/17 12:00 05/12/17 12:00 05/12/17 12:00 05/12/17 12:00 05/12/17 12:00 Microbiology 05/05/17 15:13 Blood Culture - Final Blood 05/05/17 15:25 Blood Culture - Final Blood Laboratory Results 05/11/17 05:31 05/12/17 05:56 05/11/17 05/12/17 05/13/17 05:59 05:59 05:59 Intake Total 3015 850 Output Total 1800 2024 Balance 1215 -1175 - Time Spent With Patient Time Spent with Patient: greater than 25 minutes Time Spent with Patient: Greater than 25 minutes spent on this patients care, greater than 50% of time spent counseling, educating, and coordinating care regarding the above mentioned plan. - Physical Exam Constitutional: uncomfortable Musculoskeletal: other (decreased LE edema) ICD10 Worksheet Patient Problems: Problems Problem Status Onset Lymphedema Acute Cirrhosis of liver Acute
--- NOTE | 2017-05-12 16:49 | WOCRNPDOC ---
WOCRN Advanced Assessment Note - Skin Integrity Problem, Advanced Assess Left Lower Leg Dressing Type: Black Vac Foam, Hydrocolloid, Wound Vac Dressing Description: Not Intact, Saturated Exudate Amount: Excessive Exudate Color: Yellow, Red Exudate Characteristic(s): Serosanguinous Integumentary Issue Intervention: Dressing Changed Ion Wound Tissue: Macerated, Swollen, Hemosiderin Staining, Venous Dermatitis, Lichenification Ion Wound Swelling: Moderate Wound Bed Color: Red Wound Bed Constitution: Granulation Tissue Site Odor: Foul, Pungent (urea-like odor) Skin Integrity Problem Comment: Daily wound vac dressing changes since Wednesday to manage ion-wound maceration. Ion-wound skin is becoming increasingly friable and denuded from the drainage, despite prepping the skin w/ skin prep and hydrocolloid/Eakins seal. Discussed w/ Dr. Thacker, and decision made to take a break from the wound vac for a few days to determine if we can preserve the ion-wound skin. Applied Lidocaine 4% down into vac foam w/ a blunt needle, then dressing removed. Copious granulation tissue throughout wound. Ion-wound maceration and denudement extending from 1-3cm out from wound bed. Lower leg cleansed w/ NS and gauze, and skin prep applied to ion-wound. Kerlix moistened w/ 1/4 strength Dakins solution applied to wound bed only, followed by ABDs x2 and Kerlix. Orders for dressing changes TID, including airing the leg out for 20 minutes after dressing removed/before new dressing applied. Staff RNs Teo and Pam corbin.
--- NOTE | 2017-05-12 17:32 | WOCRNPDOC ---
WOCRN Advanced Assessment Note - Skin Integrity Problem, Advanced Assess Right Medial Ankle Dressing Type: Allevyn Life, Hydrofera Blue Ready Exudate Amount: Moderate Exudate Characteristic(s): Serous Integumentary Issue Intervention: Visualized Under Dressing Zenia Wound Tissue: Erythema, Macerated Zenia Wound Swelling: None Wound Bed Constitution: Granulation Tissue (70%), Adhered Slough (30% jaramillo) Wound Edges: Epithelizing Site Odor: Strong, Pungent Site Measurement - Head-to-Toe Length X Width X Depth (cm): 5.8x5.4x0.1 Skin Integrity Problem Comment: Would benefit from moist to dry dressings with dakins TID as well. Will update orders.
[2017-05-13] MEDS: oxyCODONE IR 5 MG TAB PO PRN ×5 (04:15→20:38)
[2017-05-13 05:49] LABS: ANION GAP 9 mEq/L (8-16); CALCIUM 8.1 mg/dL (8.5-10.4); CARBON DIOXIDE 25 mEq/l (22-31); CHLORIDE 101 mEq/L (97-110); CREATININE 1.1 mg/dL (0.7-1.3); GLOMERULAR FILTRATION RATE > 60; GLUCOSE 109 mg/dL (70-100); POTASSIUM 4.2 mEq/L (3.5-5.2); SODIUM 135 mEq/L (134-144)
--- NOTE | 2017-05-13 08:12 | SOAPPROG ---
SOAP Progress Note Assessment/Plan: Assessment: 52 yo with liver disease and large lower extremity weeping wounds doubt will be able to heal but did accomplish getting rid of bioburden WOW! what an improvement since I saw him last. No longer maceration. Wounds are clean and visibly smaller Agree with SNF and continue 1/4 % dakins changing tid and prn If fluid decreases then may be able to change dressing Will see periodically until discharge Plan: 05/11/17 15:55 05/13/17 08:11 Objective: Vital Signs Temp Pulse Resp BP Pulse Ox 37.1 C 81 16 94/49 L 95 05/13/17 04:00 05/13/17 04:00 05/13/17 04:00 05/13/17 04:00 05/13/17 04:00 Laboratory Results 05/11/17 05:31 05/13/17 04:56 05/12/17 05/13/17 05/14/17 05:59 05:59 05:59 Intake Total 850 1250 Output Total 2024 1800 Balance -1175 -550 ICD10 Worksheet Patient Problems: Problems Problem Status Onset Cirrhosis of liver Acute Lymphedema Acute
[2017-05-13] MEDS: PANTOPRAZOLE SODIUM 40 MG TAB PO SCH (08:50)
[2017-05-13] MEDS: LACTULOSE 20 GM/30 ML UDCUP PO SCH ×3 (08:50→20:40)
[2017-05-13] MEDS: FUROSEMIDE 40 MG/4 ML VIAL IVP SCH ×2 (08:51→16:52)
[2017-05-13] MEDS: FLUTICASONE NASAL 120 SPRAYS/16 GM MDI EACHNARE SCH ×2 (08:51→22:09)
[2017-05-13] MEDS: SPIRONOLACTONE 50 MG TAB PO SCH (08:51)
[2017-05-13] MEDS: ENOXAPARIN 40 MG/0.4 ML SYR SC SCH (08:51)
--- NOTE | 2017-05-13 09:25 | WOCRNPDOC ---
WOCRN Advanced Assessment Note - Skin Integrity Problem, Advanced Assess Left Lower Leg Dressing Type: Open to Air Exudate Amount: Excessive Exudate Color: Yellow Exudate Characteristic(s): Serous Wound Bed Constitution: Granulation Tissue Site Odor: Slight Skin Integrity Problem Comment: Odor much improved as is ion wound skin. Continue current plan. Adding atractain cream to orders for ion wound skin. Wound care will round again next week.
--- NOTE | 2017-05-13 09:34 | HOSPPROG ---
Hospitalist Progress Note Assessment/Plan: 52 yo M w cirrhosis, possible MM here w LE wounds s/o debridement cirrhosis d/t HCV, possible etOH currently sober - hypervolemic - cont diuresis with lasix IV and aldactone - need to follow BMP, IO and daily weights - low Na diet - cont lactulose no asterixis or ascites elevated SCr - better with diuresis chronic LE wounds s/p debridement - reported PSA in wound culture as outpatient - no infection per ID, holding abx - WV taken off today, Dakins, replace WV in a few days - planning SNF rehab - pending Medicaid approval likely MM - outpt BMBx shows 10% plasma cells in marrow (discussed with onc) - most c/w smoldering MM - has PET for this Wednesday already scheduled - will need to f/u with Dr Salomon after dc anemia - at baseline dispo: inpt, peniding snf Subjective: diuresing. case d/w dr bragg Objective: Vital Signs Temp Pulse Resp BP Pulse Ox 36.9 C 79 12 97/51 L 96 05/13/17 08:00 05/13/17 08:00 05/13/17 08:00 05/13/17 08:00 05/13/17 08:00 Laboratory Results 05/11/17 05:31 05/13/17 04:56 05/12/17 05/13/17 05/14/17 05:59 05:59 05:59 Intake Total 850 1250 Output Total 2024 1800 350 Balance -1175 -550 -350 - Physical Exam Constitutional: no apparent distress Eyes: PERRL, anicteric sclera Ears, Nose, Mouth, Throat: moist mucous membranes, hearing normal Cardiovascular: regular rate and rhythym, no murmur, rub, or gallop Respiratory: no respiratory distress, no rales or rhonchi Gastrointestinal: normoactive bowel sounds, soft, non-tender abdomen, No ascites Genitourinary: no bladder fullness, no bladder tenderness Skin: other (LE w hyperkeratosis, surgically debrided wounds w graulation tissue , no odor) Musculoskeletal: full muscle strength Neurologic: AAOx3, sensation intact bilaterally Psychiatric: interacting appropriately ICD10 Worksheet Patient Problems: Problems Problem Status Onset Cirrhosis of liver Acute Lymphedema Acute
--- NOTE | 2017-05-13 17:48 | ASMTCMCOM ---
CM Note CM Note Notes: Pt declined by [facility], [facility], [facility], and [facility]. D/t the pt being under 60 and having Medicaid needing LTC and having a wound vac. Reimbursement is poor so not a great incentive to take pt. CM discussed with pt and will send referral to KATIE Aiken w/f. Date Signed: 05/13/2017 05:47 PM Electronically Signed By:Nohemi Nolan RN
[2017-05-14] MEDS: oxyCODONE IR 5 MG TAB PO PRN ×7 (00:20→20:38)
[2017-05-14 05:33] LABS: ANION GAP 7 mEq/L (8-16); CALCIUM 8.1 mg/dL (8.5-10.4); CARBON DIOXIDE 26 mEq/l (22-31); CHLORIDE 102 mEq/L (97-110); CREATININE 1.1 mg/dL (0.7-1.3); GLOMERULAR FILTRATION RATE > 60; GLUCOSE 120 mg/dL (70-100); POTASSIUM 4.1 mEq/L (3.5-5.2); SODIUM 135 mEq/L (134-144)
[2017-05-14] MEDS: LACTULOSE 20 GM/30 ML UDCUP PO SCH ×3 (08:11→20:40)
[2017-05-14] MEDS: ENOXAPARIN 40 MG/0.4 ML SYR SC SCH (08:11)
[2017-05-14] MEDS: FUROSEMIDE 40 MG/4 ML VIAL IVP SCH ×2 (08:11→15:19)
[2017-05-14] MEDS: SPIRONOLACTONE 50 MG TAB PO SCH (08:11)
[2017-05-14] MEDS: PANTOPRAZOLE SODIUM 40 MG TAB PO SCH (08:12)
[2017-05-14] MEDS: FLUTICASONE NASAL 120 SPRAYS/16 GM MDI EACHNARE SCH ×2 (08:13→20:41)
[2017-05-14] MEDS: HYDROmorphone HCL/NS/PF 0.4 MG/2 ML SYR IVP PRN ×2 (13:00→16:31)
--- NOTE | 2017-05-14 13:45 | HOSPPROG ---
Hospitalist Progress Note Assessment/Plan: 52 yo M w cirrhosis, possible MM here w LE wounds s/o debridement cirrhosis d/t HCV, possible etOH currently sober - hypervolemic - cont diuresis with lasix IV and aldactone - need to follow BMP, IO and daily weights - low Na diet - cont lactulose no asterixis or ascites elevated SCr - better with diuresis chronic LE wounds s/p debridement - reported PSA in wound culture as outpatient - no infection per ID, holding abx - WV taken off today, Dakins, replace WV in a few days - planning SNF rehab - pending Medicaid approval likely MM - outpt BMBx shows 10% plasma cells in marrow (discussed with onc) - most c/w smoldering MM - has PET for this Wednesday already scheduled - will need to f/u with Dr Salomon after dc anemia - at baseline dispo: inpt, peniding snf Subjective: case d/w dr mark, dr schroeder Objective: Vital Signs Temp Pulse Resp BP Pulse Ox 37.1 C 80 16 92/44 L 93 05/14/17 11:28 05/14/17 11:28 05/14/17 11:28 05/14/17 11:28 05/14/17 11:28 Laboratory Results 05/11/17 05:31 05/14/17 04:31 05/13/17 05/14/17 05/15/17 05:59 05:59 05:59 Intake Total 1250 3385 Output Total 1800 2525 Balance -550 860 - Physical Exam Constitutional: no apparent distress, appears nourished Eyes: PERRL Ears, Nose, Mouth, Throat: moist mucous membranes, hearing normal Cardiovascular: regular rate and rhythym, no murmur, rub, or gallop, No tachycardia Respiratory: no respiratory distress, no rales or rhonchi Gastrointestinal: normoactive bowel sounds, soft, non-tender abdomen, No ascites Genitourinary: no bladder fullness, No dixon in urethra Skin: warm, normal color, other (LE wounds bandaged) Musculoskeletal: full muscle strength, no muscle tenderness Neurologic: AAOx3 Psychiatric: interacting appropriately ICD10 Worksheet Patient Problems: Problems Problem Status Onset Cirrhosis of liver Acute Lymphedema Acute
--- NOTE | 2017-05-14 14:35 | ASMTCMCOM ---
CM Note CM Note Notes: Pt no longer has wound vac, referrals re sent to [facility] and [facility]. Per MD, will have oncologist come to consult with pt here. DC Plan: SNF Date Signed: 05/14/2017 02:35 PM Electronically Signed By:Nohemi Nolan RN
--- NOTE | 2017-05-14 17:25 | ASMTCMCOM ---
CM Note CM Note Notes: Spoke w/Merna at [facility], she will come on Wednesday to evaluate pt. CM called Ca Palomino ([phone]) at [facility] and left 2 messages to let her know that we are still looking for placement. CM updated pt and reviewed the minimum stay at SNF. Pt will also need PET scan rescheduled DC Plan: SNF Date Signed: 05/14/2017 05:25 PM Electronically Signed By:Nohemi Nolan RN
[2017-05-14 22:25] LABS: HEMATOCRIT 25.2 % (40.0-51.0)
[2017-05-15] MEDS: oxyCODONE IR 5 MG TAB PO PRN ×6 (00:39→21:00)
--- NOTE | 2017-05-15 01:00 | GCON ---
HEMATOLOGY ONCOLOGY CONSULTATION. REFERRING PHYSICIAN: Reji Damon MD REASON FOR CONSULTATION: Recent bone marrow biopsy and hematologic workup. HISTORY OF PRESENT ILLNESS: The patient is a 52-year-old gentleman seen by Dr. Salomon 04/27/2017 in consultation regarding liver lesions and a monoclonal gammopathy. An SPEP had demonstrated an M spike of 2.9, monoclonal IgG kappa. Laboratory studies performed at his consultation visit demonstrated WBC 10.9, essentially normal differential, hemoglobin 10.3, MCV 88.7, platelets 252,000. IgG 3490, IgA 592, and IgM 412. SPEP demonstrated M spike 3.2 G/dL with immunofixation demonstrating an IgG kappa. [place] light chains 19.6, lambda 8.5 , kappa/lambda ratio 2.3. Beta 2 microglobulin 3.6. He has a history of cirrhosis and untreated hepatitis C. Right upper quadrant ultrasound at [facility] (03/05/2017) described several small hypoechoic liver masses, the largest measuring up to 18 mm. Findings consistent with cirrhosis present. MRI of the abdomen at [facility] (03/26/2017) demonstrated multiple subcentimeter enhancing hepatic nodules. AFP reportedly 7.5. Plan was made for bone marrow biopsy and PET scan. The PET scan was actually scheduled for today. Bone marrow biopsy (05/04/2017) demonstrated overall cellularity 40%, 10% plasma cells. No evidence of amyloid by [place] red stain. FISH panel not performed. He was admitted 05/06/2017 for management of chronic lower extremity wounds. He went to the operating room for debridement by Dr. Thacker 05/09/2017. Wound VAC placed on the left. PAST MEDICAL HISTORY: Cirrhosis secondary to hepatitis C, untreated. He has recently established care with Dr. Espinoza. PAST SURGICAL HISTORY: Orthopedic surgeries. FAMILY HISTORY: His brother reports he has anemia. SOCIAL HISTORY: He is a smoker. He has prior alcohol use, none for the last 17 months. He lives in [place]. REVIEW OF SYSTEMS: Negative other than noted in the History of Present Illness. PHYSICAL EXAM: VITAL SIGNS: 102/52, heart rate 82, respirations 16, 94% on room air, afebrile. Limited exam. GENERAL: Pleasant gentleman in no acute distress. LUNGS: Breathing comfortably. SKIN: Bilateral lower extremities are wrapped in Eliseo bandages. LABORATORY DATA: As above. IMPRESSION: 1. 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 I suspect his anemia is multifactorial (liver disease, anemia of chronic disease due to chronic wound and infection), possible splenic sequestration). PET scan was scheduled for today and will need to be rescheduled due to his current hospitalization. This will be able to evaluate both the liver lesions and evaluate for bone lesions which, if present, would classify him as multiple myeloma, not smoldering myeloma. 2. Anemia: Likely multifactorial, as above. Iron studies will be performed which are likely to demonstrate a pattern consistent with anemia of chronic disease. 3. Hepatic lesions: Possible multifocal hepatocellular carcinoma, but PET scan is pending. His AFP was reportedly slightly elevated. 4. He will need to reschedule a PET scan once he is discharged as well as follow up with Dr. Salomon. /[id number]/MODL MTDD
[2017-05-15] MEDS: HYDROmorphone HCL/NS/PF 0.4 MG/2 ML SYR IVP PRN (04:56)
[2017-05-15 06:43] LABS: % IMMATURE GRANULYOCYTES 0.5 % (0.0-1.1); ABSOLUTE IMMATURE GRANULOCYTES 0.04 10^3/uL (0.00-0.10); ADD DIFF? NO; ADD MORPH? NO; ADD SCAN? NO; ATYPICAL LYMPHOCYTE FLAG 10 (0-99); FRAGMENT RBC FLAG 0 (0-99); HEMATOCRIT 27.2 % (40.0-51.0); HEMOGLOBIN 9.3 g/dL (13.7-17.5); LEFT SHIFT FLG 0 (0-99); LIPEMIA HEMOLYSIS FLAG 90 (0-99); MEAN CELL HEMOGLOBIN 30.2 pg (27.9-34.1); MEAN CELL HEMOGLOBIN CONCENTR. 34.2 g/dL (32.4-36.7); MEAN CELL VOLUME 88.3 fL (81.5-99.8); MEAN PLATELET VOLUME 8.8 fL (8.7-11.7); PLATELET CLUMPS FLAG 0 (0-99); PLATELET COUNT 237 10^3/uL (150-400); RED BLOOD CELL COUNT 3.08 10^6/uL (4.40-6.38); RED CELL DISTRIBUTION WIDTH 15.2 % (11.5-15.2)
[2017-05-15 06:57] LABS: % SATURATION 9 % (20-55); TOTAL IRON BINDING CAPACITY 341 ug/dL (260-490)
[2017-05-15 07:25] LABS: FERRITIN - BCH 24.4 ng/mL (17.9-464.0)
[2017-05-15] MEDS: ENOXAPARIN 40 MG/0.4 ML SYR SC SCH (09:43)
[2017-05-15] MEDS: FUROSEMIDE 40 MG/4 ML VIAL IVP SCH (09:44)
[2017-05-15] MEDS: SPIRONOLACTONE 50 MG TAB PO SCH (09:44)
[2017-05-15] MEDS: LACTULOSE 20 GM/30 ML UDCUP PO SCH ×3 (09:44→21:00)
[2017-05-15] MEDS: FLUTICASONE NASAL 120 SPRAYS/16 GM MDI EACHNARE SCH ×2 (09:45→21:02)
[2017-05-15] MEDS: PANTOPRAZOLE SODIUM 40 MG TAB PO SCH (09:45)
--- NOTE | 2017-05-15 11:41 | HOSPPROG ---
Hospitalist Progress Note Assessment/Plan: 52 yo M w cirrhosis, possible MM here w LE wounds s/o debridement cirrhosis d/t HCV, possible etOH currently sober - hypervolemic - cont diuresis with lasix IV and aldactone - need to follow BMP, IO and daily weights - low Na diet - cont lactulose no asterixis or ascites change diuretics to po elevated SCr - better with diuresis chronic LE wounds s/p debridement - reported PSA in wound culture as outpatient - no infection per ID, holding abx - WV taken off today, Dakins, replace WV in a few days - planning SNF rehab - pending Medicaid approval likely MM - outpt BMBx shows 10% plasma cells in marrow (discussed with onc) - most c/w smoldering MM - has PET for this Wednesday already scheduled - will need to f/u with Dr Salomon after dc anemia - at baseline dispo: inpt, peniding snf Subjective: case d/w blessing schroeder and [place] Objective: Vital Signs Temp Pulse Resp BP Pulse Ox 37.3 C 64 16 96/42 L 94 05/15/17 08:00 05/15/17 08:00 05/15/17 08:00 05/15/17 08:00 05/15/17 08:00 Laboratory Results 05/15/17 06:25 05/14/17 04:31 05/14/17 05/15/17 05/16/17 05:59 05:59 05:59 Intake Total 3385 1500 Output Total 2525 1800 Balance 860 -300 - Physical Exam Constitutional: no apparent distress, appears nourished Eyes: PERRL, anicteric sclera Ears, Nose, Mouth, Throat: moist mucous membranes, hearing normal Cardiovascular: regular rate and rhythym, no murmur, rub, or gallop Respiratory: no respiratory distress, no rales or rhonchi Gastrointestinal: normoactive bowel sounds, soft, non-tender abdomen Genitourinary: no bladder fullness, No dixon in urethra Skin: warm, normal color Musculoskeletal: full muscle strength Neurologic: AAOx3 ICD10 Worksheet Patient Problems: Problems Problem Status Onset Cirrhosis of liver Acute Lymphedema Acute
[2017-05-15] MEDS: SODIUM HYPOCHLORITE (DAKINS 1/4 STR) 120 ML BTL TP PRN (12:00)
[2017-05-15] MEDS: SODIUM FERRIC GLUCONAT/SUCROSE 125 MG in NS 100 ML IV SCH (12:26)
--- NOTE | 2017-05-15 13:26 | SOAPPROG ---
SOAP Progress Note Assessment/Plan: Assessment: FOLLOW-UP BILATERAL LEG DEBRIDEMENTS/WOUNDS CLEAN/AFEBRILE Plan: CONTINUE DRESSING CHANGES 05/15/17 13:25 Objective: Vital Signs Temp Pulse Resp BP Pulse Ox 36.8 C 85 18 92/50 L 96 05/15/17 12:00 05/15/17 12:00 05/15/17 12:00 05/15/17 12:00 05/15/17 12:00 Laboratory Results 05/15/17 06:25 05/14/17 04:31 05/14/17 05/15/17 05/16/17 05:59 05:59 05:59 Intake Total 3385 1500 Output Total 2525 1800 Balance 860 -300 ICD10 Worksheet Patient Problems: Problems Problem Status Onset Cirrhosis of liver Acute Lymphedema Acute
--- NOTE | 2017-05-15 13:57 | ASMTCMCOM ---
CM Note CM Note Notes: Reviewed chart regarding discharge plan, pt's progress. Jenny at [facility] to evaluate pt on 05/17/17 for placement. Awaiting call back from aC Palomino at [facility] ([phone]). Oncology consultation notes faxed via [facility] and manually to Jenny at [facility] per her request. PET scan to be rescheduled. CM will cont to follow and update plan as information becomes available. Current discharge plan: SNF Date Signed: 05/15/2017 01:57 PM Electronically Signed By:Lanie Garcia RN
[2017-05-15] MEDS: FUROSEMIDE 40 MG TAB PO SCH (15:33)
[2017-05-16] MEDS: oxyCODONE IR 5 MG TAB PO PRN ×7 (00:48→23:48)
[2017-05-16] MEDS: SODIUM HYPOCHLORITE (DAKINS 1/4 STR) 120 ML BTL TP PRN (04:11)
[2017-05-16] MEDS: HYDROmorphone HCL/NS/PF 0.4 MG/2 ML SYR IVP PRN ×2 (04:17→12:27)
[2017-05-16] MEDS: LACTULOSE 20 GM/30 ML UDCUP PO SCH ×3 (08:25→20:45)
[2017-05-16] MEDS: ENOXAPARIN 40 MG/0.4 ML SYR SC SCH (08:25)
[2017-05-16] MEDS: SODIUM FERRIC GLUCONAT/SUCROSE 125 MG in NS 100 ML IV SCH (08:25)
[2017-05-16] MEDS: SPIRONOLACTONE 50 MG TAB PO SCH (08:26)
[2017-05-16] MEDS: FUROSEMIDE 40 MG TAB PO SCH ×2 (08:26→15:39)
[2017-05-16] MEDS: PANTOPRAZOLE SODIUM 40 MG TAB PO SCH (08:26)
[2017-05-16] MEDS: FLUTICASONE NASAL 120 SPRAYS/16 GM MDI EACHNARE SCH ×2 (08:33→20:45)
--- NOTE | 2017-05-16 08:57 | HOSPPROG ---
Hospitalist Progress Note Assessment/Plan: 52 yo M w cirrhosis, possible MM here w LE wounds s/o debridement cirrhosis d/t HCV, possible etOH currently sober - hypervolemic - cont diuresis with lasix IV and aldactone - need to follow BMP, IO and daily weights - low Na diet - cont lactulose no asterixis or ascites change diuretics to po follow electrolytes w diuresis elevated SCr - better with diuresis chronic LE wounds s/p debridement - reported PSA in wound culture as outpatient - no infection per ID, holding abx - WV taken off today, Dakins, replace WV in a few days - planning SNF rehab - pending Medicaid approval likely MM - outpt BMBx shows 10% plasma cells in marrow (discussed with onc) - most c/w smoldering MM - has PET for this Wednesday already scheduled - will need to f/u with Dr Salomon after dc anemia - at baseline dispo: inpt, peniding snf Subjective: case d/w dr blackwell Objective: Vital Signs Temp Pulse Resp BP Pulse Ox 37.1 C 81 12 87/50 L 94 05/16/17 07:25 05/16/17 07:25 05/16/17 07:25 05/16/17 07:25 05/16/17 07:25 Laboratory Results 05/15/17 06:25 05/14/17 04:31 05/15/17 05/16/17 05/17/17 05:59 05:59 05:59 Intake Total 1500 100 Output Total 1800 1100 1175 Balance -300 -1000 -1175 - Physical Exam Constitutional: no apparent distress, appears nourished Eyes: PERRL, anicteric sclera Ears, Nose, Mouth, Throat: moist mucous membranes, hearing normal Cardiovascular: regular rate and rhythym, no murmur, rub, or gallop Respiratory: no respiratory distress, no rales or rhonchi Gastrointestinal: normoactive bowel sounds, soft, non-tender abdomen Genitourinary: No dixon in urethra Skin: warm, normal color, other (wounds unchanged. granulation tissue) Musculoskeletal: full muscle strength Neurologic: AAOx3 Psychiatric: interacting appropriately ICD10 Worksheet Patient Problems: Problems Problem Status Onset Cirrhosis of liver Acute Lymphedema Acute
--- NOTE | 2017-05-16 11:18 | SOAPPROG ---
SOAP Progress Note Assessment/Plan: Assessment: FOLLOW-UP BILATERAL LEG DEBRIDEMENTS/WOUNDS CLEAN/AFEBRILE Plan: CONTINUE DRESSING CHANGES 05/15/17 13:25 05/16/17 11:17 afebrile/ wounds clean/ needs more elevation/ difficult to feel pulses/ rehab pending Objective: Vital Signs Temp Pulse Resp BP Pulse Ox 37.1 C 81 12 87/50 L 94 05/16/17 07:25 05/16/17 07:25 05/16/17 07:25 05/16/17 07:25 05/16/17 07:25 Laboratory Results 05/15/17 06:25 05/14/17 04:31 05/15/17 05/16/17 05/17/17 05:59 05:59 05:59 Intake Total 1500 100 Output Total 1800 1100 1175 Balance -300 -1000 -1175 ICD10 Worksheet Patient Problems: Problems Problem Status Onset Cirrhosis of liver Acute Lymphedema Acute
[2017-05-17] MEDS: HYDROmorphone HCL/NS/PF 0.4 MG/2 ML SYR IVP PRN ×3 (03:58→15:54)
[2017-05-17] MEDS: SODIUM HYPOCHLORITE (DAKINS 1/4 STR) 120 ML BTL TP PRN (03:58)
[2017-05-17 05:04] LABS: % IMMATURE GRANULYOCYTES 0.8 % (0.0-1.1); ABSOLUTE IMMATURE GRANULOCYTES 0.06 10^3/uL (0.00-0.10); ADD DIFF? NO; ADD MORPH? NO; ADD SCAN? NO; ATYPICAL LYMPHOCYTE FLAG 10 (0-99); FRAGMENT RBC FLAG 0 (0-99); HEMATOCRIT 26.3 % (40.0-51.0); HEMOGLOBIN 9.1 g/dL (13.7-17.5); LEFT SHIFT FLG 0 (0-99); LIPEMIA HEMOLYSIS FLAG 90 (0-99); MEAN CELL HEMOGLOBIN 30.3 pg (27.9-34.1); MEAN CELL HEMOGLOBIN CONCENTR. 34.6 g/dL (32.4-36.7); MEAN CELL VOLUME 87.7 fL (81.5-99.8); MEAN PLATELET VOLUME 8.8 fL (8.7-11.7); PLATELET CLUMPS FLAG 0 (0-99); PLATELET COUNT 228 10^3/uL (150-400); RED CELL DISTRIBUTION WIDTH 15.4 % (11.5-15.2)
[2017-05-17] MEDS: oxyCODONE IR 5 MG TAB PO PRN ×5 (05:22→19:36)
[2017-05-17 05:24] LABS: ANION GAP 6 mEq/L (8-16); CALCIUM 8.1 mg/dL (8.5-10.4); CARBON DIOXIDE 23 mEq/l (22-31); CHLORIDE 103 mEq/L (97-110); CREATININE 1.3 mg/dL (0.7-1.3); GLOMERULAR FILTRATION RATE 58; GLUCOSE 114 mg/dL (70-100); POTASSIUM 4.4 mEq/L (3.5-5.2); SODIUM 132 mEq/L (134-144)
[2017-05-17] MEDS: FUROSEMIDE 40 MG TAB PO SCH ×2 (08:06→15:54)
[2017-05-17] MEDS: PANTOPRAZOLE SODIUM 40 MG TAB PO SCH (08:06)
[2017-05-17] MEDS: SPIRONOLACTONE 50 MG TAB PO SCH (08:06)
[2017-05-17] MEDS: SODIUM FERRIC GLUCONAT/SUCROSE 125 MG in NS 100 ML IV SCH (08:06)
[2017-05-17] MEDS: ENOXAPARIN 40 MG/0.4 ML SYR SC SCH (08:17)
[2017-05-17] MEDS: LACTULOSE 20 GM/30 ML UDCUP PO SCH ×3 (08:17→21:47)
[2017-05-17] MEDS: FLUTICASONE NASAL 120 SPRAYS/16 GM MDI EACHNARE SCH ×2 (10:29→21:47)
--- NOTE | 2017-05-17 12:42 | WOCRNPDOC ---
VINCE Advanced Assessment Note - Skin Integrity Problem, Advanced Assess Right Medial Ankle Dressing Type: ABD Pad, Gauze Dressing Description: Clean/Dry, Intact Exudate Amount: Moderate Exudate Color: Yellow Exudate Characteristic(s): Clear, Serous Integumentary Issue Intervention: Dressing Removed Zenia Wound Tissue: Macerated, Hemosiderin Staining, Venous Dermatitis, Shiny, Taught, Painful/Tender Wound Bed Constitution: Granulation Tissue (100%) Wound Edges: Epithelizing, Attached Site Measurement - Head-to-Toe Length X Width X Depth (cm): 3.5x2x0.1 Extremity Temperature: Warm Skin Integrity Problem Comment: draining less than surrounding wounds. Will change to HFB ready again and see how wound progresses. It is trying to epithelize. Left Dorsal Foot Dressing Type: Gauze Dressing Description: Intact Exudate Amount: Scant Exudate Color: Yellow Integumentary Issue Intervention: Dressing Removed, Mechanical Debridement Zenia Wound Tissue: Macerated, Weeping, Painful/Tender Wound Bed Constitution: Granulation Tissue (80%), Adhered Slough (20%) Wound Edges: Epithelizing, Attached Site Odor: Slight Site Measurement - Head-to-Toe Length X Width X Depth (cm): 2x2.4x0.1 Extremity Temperature: Warm Skin Integrity Problem Comment: draining less than surrounding wounds. Will change to HFB ready again and see how wound progresses. It is trying to epithelize. Left Lower Leg Dressing Type: ABD Pad, Gauze Dressing Description: Clean/Dry, Intact, Shadowed Exudate Amount: Excessive Exudate Color: Yellow Exudate Characteristic(s): Clear, Serous Integumentary Issue Intervention: Dressing Removed, Mechanical Debridement Zenia Wound Tissue: Macerated, Hemosiderin Staining, Venous Dermatitis, Dry, Painful/Tender, Hyperkeratotic Zenia Wound Swelling: Moderate (bilateral lower extremity) Wound Bed Constitution: Granulation Tissue (30%), Adhered Slough (70%) Site Odor: Strong, Pungent Site Measurement - Head-to-Toe Length X Width X Depth (cm): [id number] Extremity Temperature: Warm Skin Integrity Problem Comment: Large wound that extends from medial lower leg to lateral lower leg. Calf circumference is 41 on right and 39 on the left. Tubigrips size F for low compression will be provided pending arterial study results. Continue with 1/4 strength dakins dressing changes. Will change to BID and see if there is an improvement. Patient has quite a bit of pain with dressing changes.
--- NOTE | 2017-05-17 13:54 | HOSPPROG ---
Hospitalist Progress Note Assessment/Plan: 52 yo M w cirrhosis, possible MM here w LE wounds s/o debridement cirrhosis d/t HCV, possible etOH currently sober - hypervolemic - cont diuresis with lasix IV and aldactone - need to follow BMP, IO and daily weights - low Na diet - cont lactulose no asterixis or ascites change diuretics to po follow electrolytes w diuresis elevated SCr - better with diuresis chronic LE wounds s/p debridement - reported PSA in wound culture as outpatient - no infection per ID, holding abx - WV taken off today, Dakins, replace WV in a few days - planning SNF rehab - pending Medicaid approval likely MM - outpt BMBx shows 10% plasma cells in marrow (discussed with onc) - most c/w smoldering MM - has PET for this Wednesday already scheduled - will need to f/u with Dr Salomon after dc anemia - at baseline dispo: inpt, peniding snf Subjective: case d/w dr blackwell Objective: Vital Signs Temp Pulse Resp BP Pulse Ox 36.9 C 81 16 101/60 93 05/17/17 12:00 05/17/17 12:00 05/17/17 12:00 05/17/17 12:00 05/17/17 12:00 Laboratory Results 05/17/17 04:44 05/17/17 04:44 05/16/17 05/17/17 05/18/17 05:59 05:59 05:59 Intake Total 100 110 Output Total 1100 3075 Balance -1000 -2965 - Physical Exam Constitutional: no apparent distress, appears nourished Eyes: PERRL, anicteric sclera Ears, Nose, Mouth, Throat: moist mucous membranes, hearing normal Cardiovascular: regular rate and rhythym, no murmur, rub, or gallop Respiratory: no respiratory distress, no rales or rhonchi Gastrointestinal: normoactive bowel sounds, soft, non-tender abdomen Genitourinary: no bladder fullness, No dixon in urethra Skin: warm, normal color, other (wounds unchanged) Musculoskeletal: full muscle strength Neurologic: AAOx3 Psychiatric: interacting appropriately ICD10 Worksheet Patient Problems: Problems Problem Status Onset Cirrhosis of liver Acute Lymphedema Acute
--- NOTE | 2017-05-17 15:52 | SOAPPROG ---
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 He will need a PET/CT after discharge then follow up with Dr. Kiley Salomon as an outpatient. - Anemia - multifactorial - Hypodense liver lesions - PET/CT may be helpful there - Placement - Probable d/c to [facility] soon Plan: - PET/CT as an outpatient - F/U with Dr. Salomon as an outpatient 05/17/17 15:49 Subjective: No complaints. Looking forward to going to SNF soon. Objective: Vital Signs Temp Pulse Resp BP Pulse Ox 37 C 82 12 103/49 L 92 05/17/17 15:46 05/17/17 15:46 05/17/17 15:46 05/17/17 15:46 05/17/17 15:46 Laboratory Results 05/17/17 04:44 05/17/17 04:44 05/15/17 05/16/17 05/17/17 23:59 23:59 23:59 Intake Total 1450 110 Output Total 2200 7188 500 Balance -750 -3187 -116 Physical Exam - Physical Exam General Appearance: alert, no apparent distress Respiratory: lungs clear Cardiac/Chest: regular rate, rhythm Neuro/Psych: normal mood/affect ICD10 Worksheet Patient Problems: Problems Problem Status Onset Cirrhosis of liver Acute Lymphedema Acute
--- NOTE | 2017-05-17 16:20 | ASMTCMCOM ---
CM Note CM Note Notes: Merna was on site today from [facility] to visit w/ pt. Updates sent via [facility] to [facility]. [facility] is able to accept for tomorrow. KATIE spoke w/ Ca Palomino at [facility] and she will fax over approval to [facility]. KATIE notified RN and pt. CM to follow. Plan: [facility] Date Signed: 05/17/2017 04:19 PM Electronically Signed By:HALIE Ventura
--- NOTE | 2017-05-17 16:38 | SOAPPROG ---
SOAP Progress Note Assessment/Plan: Assessment: s/p debridement BLE Hospitalists managing comorbidities LLE Dakin's solution, RLE hydrofera blue ready Patient now wants to DC to SNF - awaiting placement S: napping when I stopped by O: exam deferred Objective: Vital Signs Temp Pulse Resp BP Pulse Ox 37 C 82 12 103/49 L 92 05/17/17 15:46 05/17/17 15:46 05/17/17 15:46 05/17/17 15:46 05/17/17 15:46 Laboratory Results 05/17/17 04:44 05/17/17 04:44 05/16/17 05/17/17 05/18/17 05:59 05:59 05:59 Intake Total 100 110 Output Total 1100 9738 Balance -1000 -5010 ICD10 Worksheet Patient Problems: Problems Problem Status Onset Cirrhosis of liver Acute Lymphedema Acute
[2017-05-18] MEDS: oxyCODONE IR 5 MG TAB PO PRN ×5 (00:31→15:13)
[2017-05-18] MEDS: HYDROmorphone HCL/NS/PF 0.4 MG/2 ML SYR IVP PRN (00:46)
[2017-05-18 06:09] LABS: ANION GAP 9 mEq/L (8-16); CALCIUM 8.5 mg/dL (8.5-10.4); CARBON DIOXIDE 21 mEq/l (22-31); CHLORIDE 104 mEq/L (97-110); CREATININE 1.4 mg/dL (0.7-1.3); GLOMERULAR FILTRATION RATE 53; GLUCOSE 126 mg/dL (70-100); POTASSIUM 4.1 mEq/L (3.5-5.2); SODIUM 134 mEq/L (134-144)
[2017-05-18 08:05] VITALS: TEMP 98.4
[2017-05-18] MEDS: ENOXAPARIN 40 MG/0.4 ML SYR SC SCH (08:07)
[2017-05-18] MEDS: FLUTICASONE NASAL 120 SPRAYS/16 GM MDI EACHNARE SCH (08:08)
[2017-05-18] MEDS: FUROSEMIDE 40 MG TAB PO SCH ×2 (08:08→15:14)
[2017-05-18] MEDS: LACTULOSE 20 GM/30 ML UDCUP PO SCH (08:08)
[2017-05-18] MEDS: SPIRONOLACTONE 50 MG TAB PO SCH (08:09)
[2017-05-18] MEDS: PANTOPRAZOLE SODIUM 40 MG TAB PO SCH (08:10)
[2017-05-18 11:37] VITALS: BP 111/56; PULSE 92; RESP 16; O2SAT 95
[2017-05-18] MEDS: SODIUM FERRIC GLUCONAT/SUCROSE 125 MG in NS 100 ML IV SCH (11:40)
--- NOTE | 2017-05-18 12:11 | PDIAF ---
- Diagnosis Diagnosis: lower extremity wounds Code Status: Full Code - Medication Management Discharge Medications: Medications to Continue on Transfer Fluticasone Nasal [Flonase Nasal [place]] 2 sprays NASAL BID 05/04/17 [Last Taken 05/05/17 21:00] Omeprazole 40 mg PO DAILY 05/04/17 [Last Taken 05/05/17] Furosemide [Lasix 40 MG (*)] 60 mg PO BID@0900,1500 tab 05/18/17 [Last Taken Unknown] Lidocaine HCl [Lidocaine HCl 4% Topical Soln (*)] 20 ml TP [id number] PRN bottle [Last Taken Unknown] Sodium Hypochlorite [Dakins 1/4 Strength] 60 ml TP PRN PRN btl 05/18/17 [Last Taken Unknown] Spironolactone [Aldactone] 50 mg PO DAILY tab 05/18/17 [Last Taken Unknown] oxyCODONE IR [Oxycodone Ir (*)] 5 - 15 mg PO Q3H PRN tab 05/18/17 [Last Taken Unknown] Discharge Medications: Refer to the Discharge Home Medication list for PRN reason. - Orders Services needed: Registered Nurse, Physical Therapy, Occupational Therapy Diet Recommendation: no restrictions on diet Diet Texture: Regular Texture Diet - Follow Up Care Current Providers and Referrals[facility] [Clinic] - follow up in 1 week (on a day when Dr. Thacker or Ebony AUGUST seeing patients) Chito Akins MD [Medical Doctor] - Esau Salomon MD [Medical Doctor] - Abbey Stokes PA [Primary Care Provider] -
--- NOTE | 2017-05-18 14:14 | SOAPPROG ---
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 He will need a PET/CT after discharge then follow up with Dr. Kiley Salomon as an outpatient. - Anemia - multifactorial but at least part of the etiology is iron deficiency. - Hypodense liver lesions - PET/CT may be helpful there - Placement - Probable d/c to [place] soon Plan: - PET/CT as an outpatient - F/U with Dr. Salomon as an outpatient - Recheck status of anemia as an out patient - For discharge today Subjective: No complaints. Ready for discharge Objective: Vital Signs Temp Pulse Resp BP Pulse Ox 36.9 C 92 16 111/56 L 95 05/18/17 11:36 05/18/17 11:36 05/18/17 11:36 05/18/17 11:36 05/18/17 11:36 Laboratory Results 05/17/17 04:44 05/18/17 05:22 05/16/17 05/17/17 05/18/17 23:59 23:59 23:59 Intake Total 110 450 Output Total 2575 500 Balance -2465 -50 Physical Exam - Physical Exam General Appearance: alert, no apparent distress ICD10 Worksheet Patient Problems: Problems Problem Status Onset Cirrhosis of liver Acute Lymphedema Acute
--- NOTE | 2017-05-18 15:32 | ASDISCHSUM ---
Discharge Information Plan Status:SNF Medically Cleared to Leave:05/17/2017 Discharge Date:05/18/2017 03:29 PM D/C Disposition:Snf Facility ADT D/C Disposition:Snf Facility Projected Discharge Date:05/18/2017 11:00 AM Transportation at D/C: Discharge Delay Reason: Follow-Up Date:05/18/2017 11:00 AM Discharge Slot: Final Diagnosis: Placement Information Referral Type:*Snf/SNF Referral ID:[id number] Provider Name:[facility] Address 1:[address] Phone Number: Address 2: Fax Number: City:[place] Selection Factors: State:[place] Patient Contact Information Contact Name:COY Relationship:Sister Address: City: [facility] Phone: [facility] Code: Email: Financial Information Financial Class: Primary Plan Desc:[employer] [place] Primary Plan Number:[id number] Secondary Plan Desc: Secondary Plan Number: Assessment Information [facility] Progress Note CM Note KATIE Note Notes: Spoke with this am, pt needs a wound vac. Application form signed and submitted to [facility], Sarina at [facility] notified. CM spoke w/pt re dc home with wound vac and homecare. Pt does not have a home of his own, his 8 yrs ago from bone cancer. Presently he is staying with Melba a "lady friend" she Lives at [address] in [place]. He also has a brother in [place] but he doesn't like to be around him as he "self medicates". He does have another friend Gene who he can also stay with. CM and pt also discussed SNF but since he is has Medicaid, he would need to stay 30 days, pt prefers to go to Melba's house. CM waiting for ins auth for wound vac and will set up home care. DC Plan: [facility]c [facility] with wound vac and HH RN Date Signed: 05/07/2017 05:26 PM Electronically Signed By:Nohemi Nolan RN [facility] CM Progress Note CM Note CM Note Notes: Pt wound vac approved. [id number] Date Signed: 05/08/2017 11:14 AM Electronically Signed By:Nohemi Nolan RN [facility] CM Progress Note CM Note CM Note Notes: Spoke w/MD, change in POC, pt now feels he needs to go to SNF. CM discussed change with pt and he does not think staying with his friend will work out. Pt understands he will need to stay a minimum of 30 days. Pt has medicaid, CM filled out ultc-100 and faxed signed copy to [facility], email sent to Tahira. Referrals sent to: ABRAM,R[facility] Marroquin,YOGI, [facility] DC Plan: SNF Date Signed: 05/08/2017 04:22 PM Electronically Signed By:Nohemi Nolan RN [facility] CM Progress Note CM Note CM Note Notes: Emily Palomino (P#: [phone]) from [facility] came and assessed pt today for pt to go to rehab. Pts Medicaid LTC application has been sent to [facility]. CM to follow. Plan: awaiting approval from [facility] and Medicaid LTC Date Signed: 05/11/2017 02:16 PM Electronically Signed By:HALIE Ventura [facility] CM Progress Note CM Note CM Note Notes: Pt declined by SANDRA, YOGI, R[facility] Marroquin, and ABRAM. D/t the pt being under 60 and having Medicaid needing LTC and having a wound vac. Reimbursement is poor so not a great incentive to take pt. CM discussed with pt and will send referral to KATIE Aiken w/f. Date Signed: 05/13/2017 05:47 PM Electronically Signed By:Nohemi Nolan RN [facility] CM Progress Note CM Note CM Note Notes: Pt no longer has wound vac, referrals re sent to Nelli and [facility] Marroquin. Per , will have oncologist come to consult with pt here. DC Plan: [facility] Date Signed: 05/14/2017 02:35 PM Electronically Signed By:Nohemi Nolan RN [facility] CM Progress Note CM Note CM Note Notes: Spoke w/Merna at [facility], she will come on Wednesday to evaluate pt. CM called Ca Palomino ([phone]) at [facility] and left 2 messages to let her know that we are still looking for placement. CM updated pt and reviewed the minimum stay at [facility]. Pt will also need PET scan rescheduled DC Plan: SNF Date Signed: 05/14/2017 05:25 PM Electronically Signed By:Nohemi Nolan RN [facility] KATIE Progress Note CM Note CM Note Notes: Reviewed chart regarding discharge plan, pt's progress. Jenny at [facility] to evaluate pt on Wed05/17/17 for placement. Awaiting call back from Ca Palomino at [facility] ([phone]). Oncology consultation notes faxed via [employer] and manually to Jenny at [facility] per her request. PET scan to be rescheduled. CM will cont to follow and update plan as information becomes available. Current discharge plan: [facility] Date Signed: 05/15/2017 01:57 PM Electronically Signed By:Lanie Garcia RN [facility] KATIE Progress Note CM Note CM Note Notes: Merna was on site today from [facility] to visit w/ pt. Updates sent via [employer] to [facility]. [facility] is able to accept for tomorrow. KATIE spoke w/ Ca Palomino at [facility] and she will fax over approval to [facility]. KATIE notified RN and pt. CM to follow. Plan: Signed: 05/17/2017 04:19 PM Electronically Signed By:HALIE Ventura Case Management Discharge Plan Note Case Management Discharge Discharge Order Complete? Answers: Yes Patient to Obtain Answers: Other Notes: [facility] Transportation Arranged Answers: Other Notes: [facility] will Pick (Date 05/18/2017 03:00 PM & Time) EMTALA Complete Answers: No Case Management Transport Answers: Yes Form Complete Faxed Final Orders Answers: Yes Agency/Facility Transfer Answers: Yes Report Printed & Faxed to Receiving Agency Family Notified Answers: No Discharge Comments Notes: Pt is being discharged to [facility] today. CM sent d/c orders to [facility]. CM provided SUNG Ewing w/ phone number to give report. CM available for changes. Plan: Signed: 05/18/2017 02:27 PM Electronically Signed By:HALIE Ventura Intervention Information
--- NOTE | 2017-05-18 20:38 | GDS ---
[f rep st] DISCHARGE SUMMARY DISCHARGE DIAGNOSES: Include: 1. Bilateral lower extremity wounds, status post surgical debridement. 2. 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 3. Suspected multiple myeloma. 4. Chronic anemia. HISTORY OF PRESENT ILLNESS: This is a 52-year-old male who presented on 05/06/2017 with complaints o f lower extremity swelling and pain. For details of the patient's initial presentation, please see t he history and physical dated 05/06/2017. CONSULTATIVE SERVICES: Include: 1. Wound Care. 2. General Surgery. 3. Oncology. HOSPITAL COURSE: By issue: 1. Lower extremity wounds: Patient was seen by General Surgery and underwent debridement with aggre ssive wound care. The patient was initially treated with antibiotics and cleared for discontinuation of antibiotics by Infectious Disease. He will be discharged to custodial for ongoing wound mo nitoring. 2. Cirrhosis: Patient has had medication titration and is being discharged on spironolactone and La six for ongoing management of his ascites and lower extremity edema. 3. Suspected multiple myeloma: The patient was seen by Hematology/Oncology. Will be [facility] in [facility] outpatient setting by Dr. Salomon, has a PET scan scheduled for imaging. MEDICATIONS AT THE TIME OF DISPOSITION: Please reference the med rec printed on 05/18/2017. FOLLOWUP APPOINTMENTS: For this patient include with: 1. Dr. Akins. 2. Dr. Salomon. 3. Wound Clinic. PENDING STUDIES: At the time of this dictation are none. TIME SPENT: I spent greater than 30 minutes in the planning and coordination of this discharge. /[id number]/MODL
== END 2017-05-18 15:29 | DRG 580 ==
LOC: F3E 05:27 → EDSTATUS 07:15 → F3E 09:15 → OBSVTOIN 05-07 14:06
PROVIDERS: ADMIT Student in an Organized Health Care Education/Training Program; ATTEND Student in an Organized Health Care Education/Training Program
DX: L97.319 Non-pressure chronic ulcer of right ankle with unspecified severity (principal); C90.00 Multiple myeloma not having achieved remission; L97.529 Non-pressure chronic ulcer of other part of left foot with unspecified severity; L97.829 Non-pressure chronic ulcer of other part of left lower leg with unspecified severity; I89.0 Lymphedema, not elsewhere classified; B19.20 Unspecified viral hepatitis C without hepatic coma; K74.69 Other cirrhosis of liver; D64.9 Anemia, unspecified; B96.5 Pseudomonas (aeruginosa) (mallei) (pseudomallei) as the cause of diseases classified elsewhere; Z72.0 Tobacco use
CPT/HCPCS: 97116-GP; 97161-GP; 97165-GO; 97530-GO; 97530-GP; 97535-GO; G0378; J0171; J0690; J1170; J1650; J1940; J2704; J2916; J3010

== ENCOUNTER → 2018-04-13 | Outpatient (CLI) | payer MEDICAID ==
[~2018-04-13] MED LIST: FLUMAZENIL 0.5 MG/5 ML MDV IVP PRN; LIDOCAINE 1% 300 MG/30 ML SDV ONE; MIDAZOLAM 2 MG/2 ML VIAL IVP PRN; NALOXONE HCL 0.4 MG/ML INJ IVP PRN; NS 1,000 ML IV SCH; ONDANSETRON 4 MG/2 ML VIAL IVP PRN; fentaNYL 100 MCG/2 ML INJ IVP PRN; oxyCODONE IR 5 MG TAB PO PRN
--- NOTE | 2018-04-13 10:09 | PDRADPRE ---
Radiology History & Physical Indication for procedure: liver disease Significant medical history: hepatitis Home medications: Fluticasone Nasal [Flonase Nasal [place]] 2 sprays NASAL BID 05/04/17 [Last Taken 04/13/18 07:00] Omeprazole 40 mg PO DAILY 05/04/17 [Last Taken 04/12/18] Doxycycline 100 mg Prepack#2 1 tab BID 04/07/18 [Last Taken 04/13/18 08:00] Allergies/Adverse Reactions: No Known Allergies Allergy (Verified 05/04/17 15:31) Mental status: A&Ox3 Heart exam: regular rate and rhythm Lungs exam: clear to auscultation Mallampati Score: Class 1
--- NOTE | 2018-04-13 10:10 | PDPROPOC ---
Sedation Plan of Care Sedation Plan of Care: vital signs stable, mental status noted, patient educated of risks, benefits, alternatives, patient can tolerate sedation ASA Classification: ASA 2 Planned drugs: fentanyl, midazolam Mallampati Score: Class 1 Mallampati Reference Image: Patient passed 3-3-2 rule?: Yes
--- NOTE | 2018-04-13 11:40 | PDRADPN ---
Radiology Procedure Note Date of Procedure: 04/13/18 Radiologist: Joni Peng Anesthesia: IV Sedation Pre-op Diagnosis: Cirrhosis with liver lesions Post-op Diagnosis: Cirrhosis with liver lesions Procedure: U/S guided liver biospy Finding(s): Multiple liver masses with largest right lobe liver posterior segment Inf/Abcess present in the surg proc area at time of surgery?: No Depth: Organ Space EBL: Minimal Specimen(s): 18 ga core biopsy x2
[2018-04-13 13:38] VITALS: BP 93/56
== END ==
LOC: FIMAGING 08:53
PROVIDERS: ATTEND Internal Medicine
PROC: 0FB03ZX Excision of Liver, Percutaneous Approach, Diagnostic (ICD-10-PCS; principal; 2018-04-13 11:19)
DX: C22.0 Liver cell carcinoma (principal)
CPT/HCPCS: J2250; J2310; J3010

== ENCOUNTER 2018-06-07 11:02 | Day surgery (SDC) | payer MEDICAID ==
[2018-06-07] MEDS ORDERED: ALTEPLASE 2 MG VIAL IVP PRN (11:52)
[2018-06-07] MEDS ORDERED: PROTAMINE SULFATE 50 MG/5 ML VIAL IVP PRN (11:52)
[2018-06-07] MEDS ORDERED: FLUMAZENIL 0.5 MG/5 ML MDV IVP PRN (11:52)
[2018-06-07] MEDS ORDERED: MIDAZOLAM 2 MG/2 ML VIAL IVP PRN (11:52)
[2018-06-07] MEDS ORDERED: fentaNYL 100 MCG/2 ML INJ IVP PRN (11:52)
[2018-06-07] MEDS ORDERED: HEPARIN 10,000 UNIT/10 ML MDV (1,000 UNIT/ML) IVP PRN (11:52)
[2018-06-07] MEDS ORDERED: NALOXONE HCL 0.4 MG/ML INJ IVP PRN (11:52)
[2018-06-07] MEDS ORDERED: NS 1,000 ML IV SCH (12:00)
[2018-06-07 12:48] LABS: INR 1.28 (0.83-1.16); PROTIME(PATIENT) 16.2 SEC (12.0-15.0)
[2018-06-07] MEDS ORDERED: IOPAMIDOL (ISOVUE-300) 100 ML BTL ONE (14:52)
[2018-06-07] MEDS ORDERED: LIDOCAINE 1% 300 MG/30 ML SDV ONE (14:52)
[2018-06-07] MEDS ORDERED: OXYCODONE/APAP 5/325 TAB PO PRN (15:28)
--- NOTE | 2018-06-07 15:29 | PDPROPOC ---
Sedation Plan of Care Sedation Plan of Care: vital signs stable, mental status noted, patient educated of risks, benefits, alternatives, patient can tolerate sedation ASA Classification: ASA 2 Planned drugs: fentanyl, midazolam Mallampati Score: Class 2 Mallampati Reference Image: Patient passed 3-3-2 rule?: Yes
--- NOTE | 2018-06-07 15:29 | PDRADPRE ---
Radiology History & Physical Indication for procedure: cancer (Y90 mapping) Home medications: Fluticasone Nasal [Flonase Nasal [place]] 2 sprays NASAL BID 05/04/17 [Last Taken 06/06/18] Omeprazole 40 mg PO DAILY 05/04/17 [Last Taken 06/07/18 05:00] Spironolactone [Aldactone] 100 mg PO DAILY 06/01/18 [Last Taken 06/03/18] oxyCODONE IR [Oxycodone Ir (*)] 10 mg PO Q4-6PRN PRN 06/01/18 [Last Taken 05:00] Allergies/Adverse Reactions: No Known Allergies Allergy (Verified 05/04/17 15:31) Mental status: A&Ox3 Heart exam: regular rate and rhythm Lungs exam: clear to auscultation Mallampati Score: Class 2
--- NOTE | 2018-06-07 15:30 | PDRADPN ---
Radiology Procedure Note Date of Procedure: 06/07/18 Radiologist: Kostas Hawley Anesthesia: IV Sedation Pre-op Diagnosis: HCC Post-op Diagnosis: HCC Indication: HCC Procedure: Y90 mapping with embolization Finding(s): GDA and right gastric embolized. MAA adminstered. No complications. Inf/Abcess present in the surg proc area at time of surgery?: No
[2018-06-07 16:27] VITALS: BP 104/58
== END 2018-06-07 18:20 | disposition home or self-care (01) ==
LOC: FIMAGING 11:02
PROVIDERS: ATTEND Radiology Vascular & Interventional Radiology
DX: C22.0 Liver cell carcinoma (principal)
CPT/HCPCS: 36247; 37243; 75726; 78205; 99152; A9540; C1769; C1894; J1644; J2250; J2310; J3010; Q9967

== ENCOUNTER 2018-07-01 05:52 | Day surgery (SDC) | payer MEDICAID ==
[2018-07-01] MEDS ORDERED: methylPREDNISolone SOD SUCC 125 MG/2 ML VIAL IVP ONE (06:22)
[2018-07-01] MEDS ORDERED: NS 1,000 ML IV ONE (06:22)
[2018-07-01] MEDS ORDERED: NALOXONE HCL 0.4 MG/ML INJ IVP PRN (06:22)
[2018-07-01] MEDS ORDERED: fentaNYL 100 MCG/2 ML INJ IVP PRN (06:22)
[2018-07-01] MEDS ORDERED: MIDAZOLAM 2 MG/2 ML VIAL IVP PRN (06:22)
[2018-07-01] MEDS ORDERED: FLUMAZENIL 0.5 MG/5 ML MDV IVP PRN (06:22)
[2018-07-01] MEDS ORDERED: PANTOPRAZOLE SODIUM 40 MG VIAL IVP ONE (06:22)
[2018-07-01 07:39] LABS: INR 1.24 (0.83-1.16); PROTIME(PATIENT) 15.8 SEC (12.0-15.0)
[2018-07-01 09:08] VITALS: BP 97/54
[2018-07-01] MEDS ORDERED: ONDANSETRON 4 MG/2 ML VIAL IVP PRN (09:10)
[2018-07-01] MEDS ORDERED: OXYCODONE/APAP 5/325 TAB PO PRN (09:10)
--- NOTE | 2018-07-01 09:12 | PDRADPRE ---
Radiology History & Physical Indication for procedure: cancer (HCC right lobe Y90) Home medications: Fluticasone Nasal [Flonase Nasal [place]] 2 sprays NASAL BID 05/04/17 [Last Taken 07/01/18] Omeprazole 40 mg PO DAILY 05/04/17 [Last Taken 07/01/18 05:00] Spironolactone [Aldactone] 100 mg PO DAILY 06/01/18 [Last Taken 06/30/18 08:00] oxyCODONE IR [Oxycodone Ir (*)] 10 mg PO Q4-6PRN PRN 06/01/18 [Last Taken 05:00] Allergies/Adverse Reactions: No Known Allergies Allergy (Verified 05/04/17 15:31) Mental status: A&Ox3 Heart exam: regular rate and rhythm Lungs exam: clear to auscultation Mallampati Score: Class 1
--- NOTE | 2018-07-01 09:14 | PDRADPN ---
Radiology Procedure Note Date of Procedure: 07/01/18 Radiologist: Kostas Hawley Anesthesia: IV Sedation Pre-op Diagnosis: HCC Post-op Diagnosis: HCC Indication: HCC Procedure: Right lobe Y90 Finding(s): 5 U[place] sheath right common femoral artery. Right lobe treated without complication. To nuclear medicine. Inf/Abcess present in the surg proc area at time of surgery?: No
[2018-07-01] MEDS ORDERED: IOPAMIDOL (ISOVUE 370) 100 ML BTL IV ONE (09:19)
== END 2018-07-01 12:29 | disposition home or self-care (01) ==
LOC: FIMAGING 05:52
PROVIDERS: ATTEND Radiology Vascular & Interventional Radiology
DX: C22.0 Liver cell carcinoma (principal)
CPT/HCPCS: 36247; 37243; 75726; 76937; 77790; 78201; 79445; 99152; C1769; 82947-QW; J1200; J1644; J2250; J2310; J2930; J3010; Q9967

== ENCOUNTER 2018-08-17 06:48 | Day surgery (SDC) | payer MEDICAID ==
[2018-08-17] MEDS ORDERED: fentaNYL 100 MCG/2 ML INJ IVP PRN (06:57)
[2018-08-17] MEDS ORDERED: NS 1,000 ML IV ONE (06:57)
[2018-08-17] MEDS ORDERED: MEPERIDINE 25 MG/ML SYR IVP PRN (06:57)
[2018-08-17] MEDS ORDERED: FLUMAZENIL 0.5 MG/5 ML MDV IVP PRN (06:57)
[2018-08-17] MEDS ORDERED: MIDAZOLAM 2 MG/2 ML VIAL IVP PRN (06:57)
[2018-08-17] MEDS ORDERED: PANTOPRAZOLE SODIUM 40 MG VIAL IVP ONE (06:57)
[2018-08-17] MEDS ORDERED: HEPARIN 10,000 UNIT/10 ML MDV (1,000 UNIT/ML) IVP PRN (06:57)
[2018-08-17] MEDS ORDERED: PROTAMINE SULFATE 50 MG/5 ML VIAL IVP PRN (06:57)
[2018-08-17] MEDS ORDERED: methylPREDNISolone SOD SUCC 125 MG/2 ML VIAL IVP ONE (06:57)
[2018-08-17] MEDS ORDERED: NALOXONE HCL 0.4 MG/ML INJ IVP PRN (06:57)
[2018-08-17 07:25] LABS: PLATELET COUNT 189 10^3/uL (150-400)
[2018-08-17 07:26] VITALS: BP 94/54
[2018-08-17 07:36] LABS: INR 1.28 (0.83-1.16); PROTIME(PATIENT) 15.5 SEC (12.0-15.0)
[2018-08-17] MEDS ORDERED: IOPAMIDOL (ISOVUE-300) 100 ML BTL ONE (07:57)
[2018-08-17] MEDS ORDERED: LIDOCAINE 1% 300 MG/30 ML SDV ONE (08:00)
== END 2018-08-17 08:31 | disposition home or self-care (01) ==
LOC: FIMAGING 06:48
PROVIDERS: ATTEND Radiology Vascular & Interventional Radiology
DX: C22.0 Liver cell carcinoma (principal); Z53.09 Procedure and treatment not carried out because of other contraindication; R79.9 Abnormal finding of blood chemistry, unspecified
CPT/HCPCS: J1200; J1644; J2250; J2310; J2930; J3010; Q9967

== ENCOUNTER 2018-09-15 06:51 | Day surgery (SDC) | payer MEDICAID ==
[2018-09-15] MEDS ORDERED: FLUMAZENIL 0.5 MG/5 ML MDV IVP PRN (06:54)
[2018-09-15] MEDS ORDERED: NS 1,000 ML IV ONE (06:54)
[2018-09-15] MEDS ORDERED: MIDAZOLAM 2 MG/2 ML VIAL IVP PRN (06:54)
[2018-09-15] MEDS ORDERED: PROTAMINE SULFATE 50 MG/5 ML VIAL IVP PRN (06:54)
[2018-09-15] MEDS ORDERED: fentaNYL 100 MCG/2 ML INJ IVP PRN (06:54)
[2018-09-15] MEDS ORDERED: methylPREDNISolone SOD SUCC 125 MG/2 ML VIAL IVP ONE (06:54)
[2018-09-15] MEDS ORDERED: PANTOPRAZOLE SODIUM 40 MG VIAL IVP ONE (06:54)
[2018-09-15] MEDS ORDERED: NALOXONE HCL 0.4 MG/ML INJ IVP PRN (06:54)
[2018-09-15] MEDS ORDERED: FLUMAZENIL 0.5 MG/5 ML MDV IVP ONE (09:11)
[2018-09-15] MEDS ORDERED: NALOXONE HCL 0.4 MG/ML INJ ONE (09:11)
[2018-09-15] MEDS ORDERED: OXYCODONE/APAP 5/325 TAB PO PRN (09:12)
[2018-09-15] MEDS ORDERED: ONDANSETRON 4 MG/2 ML VIAL IVP PRN (09:12)
--- NOTE | 2018-09-15 09:12 | PDRADPRE ---
Radiology History & Physical Indication for procedure: cancer (HCC- Left lobe Y90) Home medications: Fluticasone Nasal [Flonase Nasal [place]] 2 sprays NASAL BID 05/04/17 [Last Taken 09/14/18] Omeprazole 40 mg PO DAILY 05/04/17 [Last Taken 09/15/18 06:00] Spironolactone [Aldactone] 100 mg PO DAILY 06/01/18 [Last Taken 09/14/18] oxyCODONE IR [Oxycodone Ir (*)] 10 mg PO Q4-6PRN PRN 06/01/18 [Last Taken 06:00] Morphine Sulfate 30 mg 08/15/18 [Last Taken 09/15/18 05:00] Allergies/Adverse Reactions: No Known Allergies Allergy (Verified 05/04/17 15:31) Mental status: A&Ox3 Heart exam: regular rate and rhythm Lungs exam: clear to auscultation Mallampati Score: Class 2
--- NOTE | 2018-09-15 09:12 | PDRADPN ---
Radiology Procedure Note Date of Procedure: 09/15/18 Radiologist: Kostas Hawley Anesthesia: IV Sedation Pre-op Diagnosis: HCC Post-op Diagnosis: HCC Indication: HCC Procedure: Left lobe Y90 Finding(s): Left lobe Y90 without complication Inf/Abcess present in the surg proc area at time of surgery?: No
[2018-09-15] MEDS ORDERED: IOPAMIDOL (ISOVUE-300) 100 ML BTL ONE (09:33)
[2018-09-15 12:20] VITALS: BP 117/73
== END 2018-09-15 12:15 | disposition home or self-care (01) ==
LOC: FIMAGING 06:51
PROVIDERS: ATTEND Radiology Vascular & Interventional Radiology
PROC: B41B1ZZ Fluoroscopy of Other Intra-Abdominal Arteries using Low Osmolar Contrast (ICD-10-PCS; principal; 2018-09-15 10:30)
PROC: B4121ZZ Fluoroscopy of Hepatic Artery using Low Osmolar Contrast (ICD-10-PCS; principal; 2018-09-15 10:30)
PROC: 04L33DZ Occlusion of Hepatic Artery with Intraluminal Device, Percutaneous Approach (ICD-10-PCS; principal; 2018-09-15 10:30)
DX: C22.0 Liver cell carcinoma (principal)
CPT/HCPCS: 36247; 37243; 75726; 77790; 78201; 79445; 99152; 99153; C1769; C1894; C1760; J1200; J1644; J2250; J2310; J2930; J3010; Q9967

== ENCOUNTER 2018-11-01 16:27 | Inpatient (IN) | payer MEDICAID | END 2018-11-14 14:38 | disposition hospice, home (50) | LOC: F1N 17:59 ==